=== PATIENT | female | born 1955 | race Caucasian/White ===

== ENCOUNTER 2019-04-13 15:18 | Emergency (ER) | payer MEDICARE, OTHER, SELFPAY ==
--- NOTE | ~2019-04-13 | XR_ITS ---
EXAMINATION: XR thoracic spine 3V DATE: 04/13/2019 15:51 INDICATION: Back pain TECHNIQUE: One AP, lateral and lateral swimmer's views of the thoracic spine were obtained. COMPARISON: Chest CT dated 11/18/2017 FINDINGS: Partially visualized mild lumbar dextrocurvature. Normal alignment of the thoracic spine. Vertebral b owen heights are normal. Mild to moderate disc height loss at a few levels at the lower cervical, mid thoracic and upper lumbar spine. Visualized lungs are clear with no pleural effusion or pneumothorax. Cardiomediastinal silhouette is normal. IMPRESSION: 1. Mild to moderate spondylosis in the lower cervical, mid thoracic and upper lumbar spine with parti ally visualized mild lumbar dextrocurvature. Reviewed, dictated and finalized at location A. PMENT OR MACHINERY CLEANER IMPRESSION: 1. Mild to moderate spondylosis in the lower cervical, mid thoracic and upper l umbar spine with partially visualized mild lumbar dextrocurvature.
--- NOTE | 2019-04-13 15:21 | ED.GENADULT ---
HPI - General Adult General Chief complaint: Back Pain/Injury Stated complaint: MUSCLE SPASMS IN BACK Time Seen by Provider: 04/13/19 15:34 Source: patient and RN notes reviewed Mode of arrival: ambulatory Limitations: no limitations History of Present Illness HPI narrative: This patient awakened at 2 AM today with left mid thoracic back pain which does not radiate. She has not had any fall or direct injury or blow to the area, however she has been pushing her disabled son in his wheelchair and helping him to transfer in and out of bed. He weighs 270 pounds. It hurts with movement. It feels little better she is standing that she is sitting. She went to a massage therapist about 1030 this morning and had a massage and that seemed to help some to relieve what feels like spasm of the muscles in that area. She has never had any fractures of her vertebra are performed for her ribs in the past. Does not hurt when she takes a deep breath. She does not feel short of breath and does not have any chest pain. She has had no cough. She has not had any ear pain, no nasal drainage, no sore throat, no fever, no cough. She has had no nausea, no vomiting, no diarrhea. She has had no hematuria, no dysuria, no pyuria. She has taken Aleve without relief of the symptoms. Related Data Allergies Allergy/AdvReac Type Severity Reaction Status Date / Time Sulfa (Sulfonamide Allergy Unknown Unknown Verified 04/13/19 15:32 Antibiotics) ENVIRONMENTAL ALLERGENS Allergy Mild Cough Uncoded 04/13/19 15:32 Review of Systems Review of Systems: Narrative: CONSTITUTIONAL: Denies fever, chills, or sweats. EYES: Denies visual changes, redness, or discharge. ENT: Denies rhinorrhea, congestion, sore throat, or otalgia. CARDIOVASCULAR: Denies chest pain, palpitations, or edema. RESPIRATORY: Denies cough or dyspnea. GASTROINTESTINAL: Denies abdominal pain, nausea, vomiting, or diarrhea. GENITOURINARY: Denies dysuria or hematuria. SKIN: Denies rash or itching. MUSCULOSKELETAL: Denies back pain, joint pain, or myalgia. NEUROLOGIC: Denies headache, numbness, or weakness. PSYCHIATRIC: Denies anxiety or depression. Noncontributory except as pertains to the past medical history and history of present illness. [facility] Past Medical History Medical History (Updated 04/13/19 @ 15:43 by Moisés Morgan MD) Anxiety Asthma Depression History of vaginal delivery Surgical History Surgical History (Updated 03/28/19 @ 10:55 by Sylwia Vera [facility]) H/O LEEP History of dilation and curettage History of right hip replacement [place] teeth removed Social History Social History Smoking status: Former smoker Second hand tobacco smoke exposure: No Smoking end date: 03/07/16 Alcohol intake: current Comments At time of signature, I have reviewed and agree with nursing past medical, surgical, social, and family history.Please see nursing chart for further information. There is no relevant family history pertinent to the presenting complaint. Exam Narrative: Exam Narrative: GENERAL: Well-appearing, well-nourished, and in no acute distress. HEAD: Normocephalic, atraumatic. EYES: PERRLA and EOMI. EARS: TM's clear bilaterally and the canals are clear. NOSE: Nares clear, no rhinorrhea or epistaxis. THROAT:Mucous membranes moist.Oropharynx normal without erythema or exudates. NECK: Supple. No adenopathy of the neck, supraclavicular, axillary, or inguinal areas. RESPIRATORY: No respiratory distress. Airway patent. Respirations non-labored. Clear to auscultation. There are no wheezes, no rales, no retractions, no use of accessory muscle respirations. Patient is not cyanotic and not dyspneic. The pulse ox on room air is 100% current temperature is 36.7. Patient has palpation tenderness with muscle spasm along the left mid thoracic area posteriorly near the medial border the scapula. The scapula itself is not tender to palpation. There is no muscle spasm or palpatio
[2019-04-13 15:25] VITALS: BP 135/61; PULSE 79; RESP 20; TEMP 36.7; O2SAT 100
== END 2019-04-13 16:04 | disposition home or self-care (01) ==
PROVIDERS: Emergency Provider Family Medicine
DX: S29.012A Strain of muscle and tendon of back wall of thorax, initial encounter (principal); X58.XXXA Exposure to other specified factors, initial encounter; J45.909 Unspecified asthma, uncomplicated; Z96.641 Presence of right artificial hip joint; Z87.891 Personal history of nicotine dependence
CPT/HCPCS: 72072; 99213; G0463

== ENCOUNTER 2019-05-01 10:16 | Outpatient (CLI) | payer MEDICARE, OTHER, SELFPAY ==
--- NOTE | ~2019-05-01 | MM_ITS ---
EXAMINATION: MM screening [facility] w [facility] HISTORY: Screening mammogram TECHNIQUE: Craniocaudal and mediolateral oblique 3-D tomosynthesis images were obtained and synthetic 2-D images were generated. CAD analysis was submitted and interpreted. COMPARISON: Comparison to multiple prior studies sequentially, with oldest reviewed study dated 11/21. BREAST PARENCHYMAL COMPOSITION: The breasts are heterogeneously dense, which may obscure small masses . FINDINGS: There is no evidence of suspicious mass, calcification, or architectural distortion to sugg est malignancy in either breast. There has been no suspicious interval change. IMPRESSION: 1. No mammographic evidence of malignancy. 2. Recommend routine screening mammography in one year. BI-RADS Category 1: Negative Reviewed, dictated and finalized at location A. TRUCK DRIVER
== END 2019-05-01 10:17 | disposition home or self-care (01) ==
LOC: ANHIMG 10:21
PROVIDERS: PCP Family Medicine; Visit Provider Student in an Organized Health Care Education/Training Program
DX: Z12.31 Encounter for screening mammogram for malignant neoplasm of breast (principal)
CPT/HCPCS: 77063; 77067

== ENCOUNTER → 2019-12-17 07:40 | Outpatient (CLI) | payer MEDICARE, SELFPAY ==
--- NOTE | ~2019-12-17 | CT_ITS ---
EXAMINATION: CT lung screening DATE: 12/17/2019 08:26 INDICATION: Personal history of tobacco use, current smoker with 30 pack year history TECHNIQUE: Computed tomography (CT) of the chest was performed without intravenous contrast. The dose -length product (DLP) was 42.82 mGy-cm. Automated exposure control and iterative reconstruction techn Moduslyue were employed. COMPARISON: 11/18/2017 FINDINGS: There is mild emphysema. No suspicious pulmonary nodules are identified. There is no pleura l effusion or pneumothorax. No pathologically enlarged thoracic lymph nodes are identified. The heart size is normal. Cysts of the liver measure up to 2.9 cm in the left hepatic lobe. There is mild thor acic spondylosis. IMPRESSION: 1. Lung-RADS category 1: Negative. Continue annual screening with noncontrast low-dose chest CT in 12 months. Reviewed, dictated and finalized at location A. IMPRESSION: 1. Lung-RADS category 1: Negative. Continue annual screening with noncontrast l ow-dose chest CT in 12 months.
== END ==
PROVIDERS: PCP Family Medicine; Visit Provider Family Medicine
DX: Z12.2 Encounter for screening for malignant neoplasm of respiratory organs (principal); Z87.891 Personal history of nicotine dependence
CPT/HCPCS: G0297

== ENCOUNTER 2020-03-26 06:54 | Outpatient (NON) | payer MEDICARE, SELFPAY ==
[2020-03-26 21:58] LABS: SARS-CoV-2 RNA PCR Negative
== END 2020-03-26 06:55 ==
LOC: ANHCOVIDDT 06:58
PROVIDERS: PCP Family Medicine; Visit Provider Family Medicine
DX: Z20.822 Contact with and (suspected) exposure to COVID-19 (principal); R52 Pain, unspecified
CPT/HCPCS: C9803; U0003; U0005

== ENCOUNTER 2020-06-23 08:28 | Outpatient (CLI) | payer MEDICARE, SELFPAY ==
--- NOTE | ~2020-06-23 | DEXA_ITS ---
Bone Density Report Name: Yaritza Grewal Age: 64 Sex: Female Ethnicity: White Date of : 1955 Indication: postmenopausal; asthma or emphysema; Referring Provider: Shruthi Mccann Study: Bone densitometry was performed. Exam Date: June 23, 2020 Accession number: [id number] Bone Density: Region BMD T-score Z-score Classification AP Spine (L1-L4) 0.920 -1.2 0.7 Osteopenia Femoral Neck (Left) 0.637 -1.9 -0.3 Osteopenia Total Hip (Left) 0.810 -1.1 0.2 Osteopenia World Health Organization criteria for BMD impression classify patients as: Normal (T-score at or above -1.0), Osteopenia (T-score between -1.0 and -2.5), or Osteoporosis (T-score at or below -2.5). 10-year Fracture Risk(1): Major Osteoporotic Fracture 9.9% Hip Fracture 1.5% Reported Risk Factors: [place] (), Neck BMD=0.637, BMI=22.9 (1) FRAX(R) Version 3.08. Fracture probability calculated for an untreated patient. Fracture probability may be lower if the patient has received treatment. Previous Exams: Region Exam Age BMD T-score BMD Change BMD Change Date g/cm2 vs Baseline vs Previous AP Spine(L1-L4) 06/23/2020 64 0.920 -1.2 -0.103(-10.1%) -0.046(-4.8%)* 04/13/2018 62 0.967 -0.7 -0.057(-5.6%)# -0.001(-0.1%) 01/16/2016 60 0.968 -0.7 -0.056(-5.4%)# -0.043(-4.2%)* 11/19/2013 58 1.011 -0.3 -0.013(-1.3%)# 0.000(0.0%)# 10/25/2009 54 1.010 -0.3 -0.013(-1.3%) -0.013(-1.3%) 06/25/2006 50 1.023 -0.2 Total Hip(Left) 06/23/2020 64 0.810 -1.1 -0.124(-13.3%) -0.041(-4.8%)* 04/13/2018 62 0.851 -0.7 -0.083(-8.9%)# 0.014(1.6%) 01/16/2016 60 0.837 -0.9 -0.096(-10.3%) -0.043(-4.9%)* 11/19/2013 58 0.880 -0.5 -0.054(-5.8%)# 0.014(1.6%)# 10/30/2011 56 0.866 -0.6 -0.068(-7.3%)# -0.060(-6.5%)# 10/25/2009 54 0.926 -0.1 -0.008(-0.8%) -0.008(-0.8%) 06/25/2006 50 0.934 -0.1 *Denotes significance at 95% confidence level, LSC for AP Spine = 0.022 g/cm2, LSC for Total Hip = 0.027 g/cm2 Clinical Information Provided by Patient: Has used the following medications: HRT (i.e. estrogen/hormone therapy), Vitamin D, Calcium Has the following medical conditions: Asthma or Emphysema Patient maximum height was 64 Menopause Age: 43 No regular weight bearing exercise Does not regularly consume dairy products Drinks caffeinated beverages Onset of menses at age 10 Number of children 1 Impression: The patient has low bone mass, based on the Left Femoral Neck T-score. The patient has
--- NOTE | ~2020-06-23 | MM_ITS ---
EXAMINATION: MM screening [facility] BI w bethany HISTORY: Screening mammogram TECHNIQUE: Craniocaudal and mediolateral oblique 3-D tomosynthesis images were obtained and synthetic 2-D images were generated. CAD analysis was submitted and interpreted. COMPARISON: 05/01/2019, 04/13/2018, 03/30/2017 BREAST PARENCHYMAL COMPOSITION: The breasts are heterogeneously dense, which may obscure small masses . FINDINGS: There is no evidence of suspicious mass, calcification, or architectural distortion to sugg est malignancy in either breast. There has been no suspicious interval change. IMPRESSION: 1. No mammographic evidence of malignancy. 2. Recommend routine screening mammography in one year. BI-RADS Category 1: Negative Reviewed, dictated and finalized at location A.
== END 2020-06-23 08:29 | disposition home or self-care (01) ==
LOC: ANHIMG 08:33
PROVIDERS: PCP Family Medicine; Visit Provider Student in an Organized Health Care Education/Training Program
DX: Z12.31 Encounter for screening mammogram for malignant neoplasm of breast (principal); Z78.0 Asymptomatic menopausal state; M85.88 Other specified disorders of bone density and structure, other site; M85.852 Other specified disorders of bone density and structure, left thigh
CPT/HCPCS: 77063; 77067; 77080

== ENCOUNTER → 2021-02-03 08:51 | Outpatient (CLI) | payer MEDICARE, SELFPAY ==
[2021-02-03 20:05] LABS: SARS-CoV-2 RNA PCR Negative
== END ==
PROVIDERS: PCP Family Medicine; Visit Provider Family Medicine
DX: R19.7 Diarrhea, unspecified (principal); R11.10 Vomiting, unspecified; Z20.822 Contact with and (suspected) exposure to COVID-19
CPT/HCPCS: C9803; U0003; U0005

== ENCOUNTER → 2021-07-23 08:37 | Outpatient (CLI) | payer MEDICARE, SELFPAY ==
--- NOTE | ~2021-07-23 | CT_ITS ---
EXAMINATION: CT lung screening DATE: 07/23/2021 08:51 INDICATION: Personal history of tobacco dependence TECHNIQUE: Computed tomography (CT) of the chest was performed without intravenous contrast. The dose -length product was 54.22 mGy-cm. COMPARISON: CT dated 12/17/2019 FINDINGS: Heart size normal. No significant pleural or pericardial effusion. No thoracic lymphadenopa thy. The upper abdomen is unremarkable. There are multiple low-density lesions in the liver, most lik laina benign cysts. Mild thoracic spondylosis. There is emphysema. No pneumothorax. No endobronchial le sions. No pulmonary nodules/masses. Mild thoracic spondylosis. IMPRESSION: 1. Lung-RADS category 1: Negative. Continue annual screening with noncontrast low-dose chest CT in 12 months. Reviewed, dictated and finalized at location B. IMPRESSION: 1. Lung-RADS category 1: Negative. Continue annual screening with noncontrast l ow-dose chest CT in 12 months.
== END ==
PROVIDERS: PCP Family Medicine; Visit Provider Family Medicine
DX: Z12.2 Encounter for screening for malignant neoplasm of respiratory organs (principal); Z87.891 Personal history of nicotine dependence
CPT/HCPCS: 71271

== ENCOUNTER → 2021-09-18 02:11 | Outpatient (CLI) | payer MEDICARE, SELFPAY ==
[2021-09-18 17:31] LABS: SARS-CoV-2 RNA PCR Negative
== END ==
PROVIDERS: PCP Family Medicine; Visit Provider Family Medicine
DX: R68.89 Other general symptoms and signs (principal); Z20.822 Contact with and (suspected) exposure to COVID-19
CPT/HCPCS: C9803; U0003; U0005

== ENCOUNTER 2022-03-12 08:00 | Outpatient (CLI) | payer MEDICARE, SELFPAY ==
--- NOTE | ~2022-03-12 | MM_ITS ---
EXAMINATION: MM screening [facility] BI w bethany HISTORY: Screening mammogram TECHNIQUE: Craniocaudal and mediolateral oblique 3-D tomosynthesis images were obtained and synthetic 2-D images were generated. CAD analysis was submitted and interpreted. COMPARISON: 06/23/2020, 05/01/2019, 04/13/2018 BREAST PARENCHYMAL COMPOSITION: The breasts are heterogeneously dense, which may obscure small masses . FINDINGS: No suspicious mass, calcification, or architectural distortion are identified in either [place]mel[place] ast to suggest malignancy. There has been no suspicious interval change. IMPRESSION: 1. No mammographic evidence of malignancy. 2. Recommend routine screening mammography in one year. BI-RADS Category 1: Negative Reviewed, dictated and finalized at location A. OR INFORMATION DEVELOPER
== END 2022-03-12 08:01 | disposition home or self-care (01) ==
LOC: ANHIMG 08:05
PROVIDERS: PCP Family Medicine; Visit Provider Family Medicine
DX: Z12.31 Encounter for screening mammogram for malignant neoplasm of breast (principal)
CPT/HCPCS: 77063; 77067

== ENCOUNTER 2022-04-13 08:38 | Outpatient (CLI) | payer MEDICARE, SELFPAY ==
--- NOTE | ~2022-04-13 | MR_ITS ---
EXAMINATION: MR lumbar spine wo con DATE: 04/13/2022 09:18 INDICATION: Low back pain. Degeneration of intervertebral disc. TECHNIQUE: Magnetic resonance imaging (MRI) of the lumbar spine was performed without intravenous con trast. Sequences included sagittal T2-weighted FSE, sagittal T2-weighted FS FSE, sagittal T1-weighted FSE, and axial T2-weighted FSE. COMPARISON: None FINDINGS: There is 23 degrees dextroscoliosis of lumbar spine. There is 3 mm retrolisthesis of L2 on L3. Vertebral body heights are normal. There is moderately decreased disc height at L1-L2 and severel y decreased disc height from L2-L3 through L5-S1 with endplate remodeling. The distal spinal cord sig nal intensity is normal. The conus medullaris is at L1. The following disc levels are specifically di scussed: L1-L2: The disc is bulging. There is mild right facet joint osteoarthritis. There is mild bilateral n eural foraminal stenosis. There is mild central canal stenosis. L2-L3: The disc is bulging and has an annular fissure. There is mild right and moderate left facet tommie int osteoarthritis. There is mild bilateral neural foraminal stenosis. There is mild central canal st enosis. L3-L4: The disc is bulging and has an annular fissure. There is mild right and moderate left facet tommie int osteoarthritis. There is mild bilateral neural foraminal stenosis. There is mild central canal st enosis. L4-L5: The disc is bulging and has an annular fissure. There is severe bilateral facet joint osteoart hritis. There is mild bilateral neural foraminal stenosis. There is mild central canal stenosis. L5-S1: The disc is bulging and has an annular fissure. There is severe right and mild left facet join t osteoarthritis. There is moderate right and mild left neural foraminal stenosis. There is mild cent ral canal stenosis. IMPRESSION: 1. Severe lumbar spondylosis. 2. Lumbar dextroscoliosis. Reviewed, dictated and finalized at location A. GER ENGLISH
== END 2022-04-13 08:39 ==
PROVIDERS: PCP Family Medicine; Visit Provider Nurse Practitioner
DX: M47.896 Other spondylosis, lumbar region (principal)
CPT/HCPCS: 72148

== ENCOUNTER → 2022-04-27 08:06 | Outpatient (CLI) | payer MEDICARE, SELFPAY ==
--- NOTE | ~2022-04-27 | XR_ITS ---
Thoracic spine: Clinical Indication: Back pain AP and lateral views were performed. No fracture is seen. There is normal alignment of the vertebrae. The intervertebral disc spaces appe ar normal. Paravertebral soft tissues appear normal. Impression: No significant abnormalities noted. Reviewed, dictated and finalized at [facility]. AR WORKER Impression: No significant abnormalities noted.
== END ==
PROVIDERS: PCP Family Medicine; Visit Provider Neurological Surgery
DX: M54.9 Dorsalgia, unspecified (principal)
CPT/HCPCS: 72072

== ENCOUNTER → 2022-05-03 11:16 | Outpatient (CLI) | payer MEDICARE, SELFPAY ==
--- NOTE | ~2022-05-03 | MR_ITS ---
EXAMINATION: MR thoracic spine wo con DATE: 05/03/2022 11:55 INDICATION: Mid back pain. TECHNIQUE: Magnetic resonance imaging (MRI) of the thoracic spine was performed without intravenous c ontrast. COMPARISON: Thoracic spine radiographs 04/27/2022 FINDINGS: There is 9 degrees levocurvature of upper thoracic spine. Vertebral body heights are normal . There is mildly decreased disc height from T4-T5 through T9-T10 and moderately decreased disc heigh t at T10-T11 and T11-T12. There is multilevel facet joint osteoarthritis, severe on the right from T2 -T3 through T4-T5 and severe on the left at T2-T3. On the right, there is mild neural foraminal steno sis at T3-T4, T4-T5, T10-T11, and T11-T12. On the left, there is mild neural foraminal stenosis at T2 -T3. At T7-T8, there is a left central protrusion with mild central canal stenosis. At T9-T10, there is a central extrusion with mild central canal stenosis and ventral indentation of the spinal cord. A t T10-T11 and T11-T12, the discs are bulging with mild central canal stenosis. At T12-L1, there is a central protrusion with mild central canal stenosis. The spinal cord signal intensity is normal. IMPRESSION: 1. Moderate thoracic spondylosis. Reviewed, dictated and finalized at location A. OMER ACCOUNT ADMINISTRATOR
== END ==
PROVIDERS: PCP Family Medicine; Visit Provider Neurological Surgery
DX: M47.894 Other spondylosis, thoracic region (principal)
CPT/HCPCS: 72146

== ENCOUNTER 2022-07-28 12:49 | Outpatient (CLI) | payer MEDICARE, SELFPAY ==
--- NOTE | ~2022-07-28 | DEXA_ITS ---
Bone Density Report Name: KARINE ALBARRAN Age: 66 Sex: Female Ethnicity: White Date of : 1955 Indication: osteopenia; inflammatory bowel disease; asthma or emphysema; postmenopausal Referring Provider: EBONY MORSE Study: Bone densitometry was performed. Exam Date: July 28, 2022 Accession number: [id number] Bone Density: Region BMD T-score Z-score Classification AP Spine(L1-L4) 0.919 -1.2 0.9 Osteopenia Femoral Neck (Left) 0.622 -2.0 -0.3 Osteopenia Total Hip (Left) 0.760 -1.5 -0.1 Osteopenia World Health Organization criteria for BMD impression classify patients as: Normal (T-score at or above -1.0), Osteopenia (T-score between -1.0 and -2.5), or Osteoporosis (T-score at or below -2.5). 10-year Fracture Risk(1): Major Osteoporotic Fracture 11% Hip Fracture 2.1% Reported Risk Factors: [place] (), Neck BMD=0.622, BMI=23.5 (1) FRAX(R) Version 3.08. Fracture probability calculated for an untreated patient. Fracture probability may be lower if the patient has received treatment. Previous Exams: Region Exam Age BMD T-score BMD Change BMD Change Date g/cm2 vs Baseline vs Previous AP Spine (L1-L4) 07/28/2022 66 0.919 -1.2 -0.092 (-9.1%) -0.002 (-0.2%) 06/23/2020 64 0.920 -1.2 -0.090 (-8.9%) -0.046 (-4.8%) 04/13/2018 62 0.967 -0.7 -0.044 (-4.3%) -0.001 (-0.1%) 01/16/2016 60 0.968 -0.7 -0.043 (-4.2%) -0.043 (-4.2%) 11/19/2013 58 1.011 -0.3 Total Hip(Left) 07/28/2022 66 0.760 -1.5 -0.120 (-13.6% -0.050 (-6.2%) 06/23/2020 64 0.810 -1.1 -0.070 (-8.0%) -0.041 (-4.8%) 04/13/2018 62 0.851 -0.7 -0.029 (-3.3%) 0.014 (1.6%) 01/16/2016 60 0.837 -0.9 -0.043 (-4.9%) -0.043 (-4.9%) 11/19/2013 58 0.880 -0.5 *Denotes significance at 95% confidence level, LSC for AP Spine = 0.022 g/cm2, LSC for Total Hip = 0.027 g/cm2 Clinical Information Provided by Patient: Has used the following medications: Vitamin D, Calcium Has the following medical conditions: Asthma or Emphysema, Inflammatory bowel diseases Patient maximum height was 64 Menopause Age: 38 Does not regularly consume dairy products Drinks caffeinated beverages Onset of menses at age 10 Number of children 1 Impression: The patient has low bone mass, based on the Left Femoral Neck T-score. The patient has an estimated ten-year risk of hip fracture of 2.1% and an estimated ten-year risk of major fracture of 11%, based on the WHO FRAX algorithm. The BMD for the Total Hip(Left) decreased, baugh
== END 2022-07-28 12:50 | disposition home or self-care (01) ==
LOC: ANHIMG 12:49
PROVIDERS: PCP Family Medicine; Visit Provider Family Medicine
DX: Z78.0 Asymptomatic menopausal state (principal); M85.88 Other specified disorders of bone density and structure, other site; M85.852 Other specified disorders of bone density and structure, left thigh
CPT/HCPCS: 77080

== ENCOUNTER 2023-03-17 08:30 | Outpatient (CLI) | payer MEDICARE, SELFPAY ==
--- NOTE | ~2023-03-17 | MM_ITS ---
EXAMINATION: MM screening [facility] BI w bethany HISTORY: Screening mammogram TECHNIQUE: Craniocaudal and mediolateral oblique 3-D tomosynthesis images were obtained and synthetic 2-D images were generated. CAD analysis was submitted and interpreted. COMPARISON: 03/12/2022, 06/23/2020, 05/01/2019 BREAST PARENCHYMAL COMPOSITION: The breasts are heterogeneously dense, which may obscure small masses . FINDINGS: No suspicious mass, calcification, or architectural distortion are identified in either carmelina ast to suggest malignancy. There has been no suspicious interval change. IMPRESSION: 1. No mammographic evidence of malignancy. 2. Recommend routine screening mammography in one year. BI-RADS Category 1: Negative Reviewed, dictated and finalized at location A. ITS MODEL
== END 2023-03-17 08:31 | disposition home or self-care (01) ==
PROVIDERS: PCP Family Medicine; Visit Provider Family Medicine
DX: Z12.31 Encounter for screening mammogram for malignant neoplasm of breast (principal)
CPT/HCPCS: 77063; 77067

== ENCOUNTER 2023-04-03 10:16 | Emergency (ER) | payer MEDICARE, SELFPAY ==
--- NOTE | ~2023-04-03 | CT_ITS ---
EXAMINATION: CT abdomen pelvis w con DATE: 04/03/2023 12:04 INDICATION: Diarrhea. Generalized abdominal cramping. TECHNIQUE: Computed tomography (CT) of the abdomen and pelvis was performed with 100 cc 350 intraveno us contrast. The dose-length product was 329.79 mGy-cm. Automated exposure control and iterative beti nstruction technique were employed. COMPARISON: None. FINDINGS: There is thickening of the sigmoid colon with multiple diverticula. No significant surround ing inflammatory change. There are multiple liver cysts. Heart size normal. Dependent atelectasis. No significant pleural or pericardial effusion. The spleen, pancreas, adrenal glands and kidneys are un remarkable. Gallbladder is present. No significant vascular abnormality. No lymphadenopathy. No free air or free fluid. There is a right hip arthroplasty. Moderate lumbar spondylosis. IMPRESSION: 1. Thickening of the sigmoid colon. Cannot exclude underlying mass or colitis. Recommend further eval uation with colonoscopy. 2: Liver cysts. Reviewed, dictated and finalized at location A. L MAID IMPRESSION: 1. Thickening of the sigmoid colon. Cannot exclude underlying mass or colitis. Recommend further evaluation with colonoscopy. 2: Liver cysts.
--- NOTE | ~2023-04-03 | XR_ITS ---
EXAMINATION: XR chest 2V 04/03/2023 12:00 INDICATION: Cough PROCEDURE: 2 view chest COMPARISON: 07/03/2015 FINDINGS: The lungs are clear. The cardiomediastinal silhouette is within normal limits. There are no pleural effusions. There is no pneumothorax suspected. IMPRESSION: 1: NO ACUTE CARDIOPULMONARY DISEASE. Reviewed, dictated and finalized at location A. OR LINUX SYSTEMS ADMINISTRATOR
[2023-04-03 10:23] VITALS: BP 154/88; PULSE 73; RESP 16; TEMP 36.8; O2SAT 100
[2023-04-03] MEDS: SODIUM CHLORIDE 0.9% IV 1,000 ML 999 ML IV CONT ×2 (10:47→12:58)
[2023-04-03 11:02] VITALS: BP 179/69; PULSE 73; RESP 17; TEMP 36.4; O2SAT 98
--- NOTE | 2023-04-03 11:05 | ED.NAVMDI ---
HPI - Nausea/Vomiting/Diarrhea General Chief complaint: Nausea/Vomiting/Diarrhea Stated complaint: n/v/d Time Seen by Provider: 04/03/23 10:35 History of Present Illness HPI Narrative: 67-year-old female reports for evaluation for nausea, vomiting and diarrhea x3 days. Patient had a telehealth appointment with her PCP on 03/21/2023 for sinus congestion for 3 days. She was placed on azithromycin on Augmentin and finished a course of antibiotics around 3-4 days ago. She then began developing multiple episodes of watery diarrhea daily associated nausea and vomiting. She reports associated abdominal cramping and intermittent mild cough. Denies fever, however states she has been having the chills and urinary frequency. Denies dysuria or hematuria, hematochezia melena, chest pain or shortness of breath. Denies recent surgeries or hospitalizations, recent travel. Related Data Home Medications Medication Instructions Recorded Confirmed calcium carbonate 600 mg calcium 600 mg PO DAILY 04/20/19 03/22/23 (1,500 mg) tablet (Calcium) cholecalciferol (vitamin D3) 100 4,000 unit PO DAILY 04/20/19 03/22/23 mcg (4,000 unit) tablet multivitamin 1 tablet PO DAILY 10/01/19 03/22/23 ascorbic acid (vitamin C) 500 mg mg PO 05/09/20 03/22/23 capsule turmeric 100 mg-magno 150 cap PO 12/15/21 03/22/23 mg-olive 50 mg-oreg 150 mg-capryl capsule sour lala extract 1,000 mg mg PO 08/16/22 03/22/23 capsule (Tart Lala Extract) magnesium oxide 400 mg PO DAILY 02/15/23 03/22/23 Allergies Allergy/AdvReac Type Severity Reaction Status Date / Time Sulfa (Sulfonamide Allergy Unknown Unknown Verified 03/22/23 10:34 Antibiotics) ENVIRONMENTAL ALLERGENS Allergy Mild Cough Uncoded 03/22/23 10:34 Review of Systems Review of Systems: CONSTITUTIONAL: Denies fever, chills, or sweats. EYES: Denies visual changes, redness, or discharge. ENT: Denies rhinorrhea, congestion, sore throat, or otalgia. CARDIOVASCULAR: Denies chest pain, palpitations, or edema. RESPIRATORY: see HPI GASTROINTESTINAL: See HPI GENITOURINARY: Denies dysuria or hematuria. SKIN: Denies rash or itching. MUSCULOSKELETAL: Denies back pain, joint pain, or myalgia. NEUROLOGIC: Denies headache, numbness, or weakness. PSYCHIATRIC: Denies anxiety or depression. [facility] Past Medical History Medical History Anxiety Asthma Degenerative disc disease Depression Diverticulosis Hepatitis C antibody test negative (09/22/16) History of vaginal delivery Surgical History Surgical History H/O LEEP History of adenectomy (~1959) History of dilation and curettage History of right hip replacement History of tonsillectomy (~1959) Hx of cataract surgery (~09/05/19) both eyes [place] teeth removed Family History Family History Father Hyperlipidemia Mother Hyperlipidemia Social History Social History Smoking status: Former smoker Second hand tobacco smoke exposure: No Smoking end date: 03/07/16 Alcohol intake: former Substance use: never Substance use type: does not use Lack of Transportation: No Lack of Food: Never True Current Housing: I Have Housing Concerned About Future Housing: No Difficulty Paying Gas/Electric Bills: No Difficulty Paying for Meds: No Currently Unemployed: No Education: Decline to Answer Difficulty w/ Childcare or Family Care: No Exam Narrative: GENERAL: Well-appearing, well-nourished, and in no acute distress. HEAD: Normocephalic, atraumatic. EYES: PERRLA and EOMI. ENT: Nares clear, no rhinorrhea or epistaxis. Mucous membranes dry NECK: Supple. CHEST: Clear to auscultation. No respiratory distress. HEART: Regular rate and rhythm. No murmur heard. Normal peripheral pulses
[2023-04-03 11:24] LABS: Basophils Percent Auto 0.3 % (0.2-1.2); Hematocrit 44.7 % (37.0-47.0); Hemoglobin 14.7 g/dL (12.0-15.0); Immature Granulocyte Absolute 0.05 K/mm3 (0.00-0.031); Immature Granulocyte Percent A 0.4 % (0-0.5); Lymphocytes Absolute Auto 0.44 K/mm3 (0.9-3.2); Lymphocytes Percent Auto 3.5 % (18.3-44.2); Mean Corpuscular HGB Conc 32.9 g/dl (32-36); Mean Corpuscular Volume 91.2 fl (80-100); Mean Platelet Volume 9.4 fl (7.4-10.4); Monocytes Absolute Auto 0.2 K/mm3 (0.1-0.6); Monocytes Percent Auto 1.8 % (2.6-8.5); Neutrophils Absolute Auto 11.7 K/mm3 (1.3-6.7); Platelet Count Result 289 k/mm3 (150-375); Red Cell Distribution Width 13.2 % (11.5-14.5); White Blood Count 12.5 K/mm3 (4.5-10.0)
[2023-04-03 11:28] LABS: Appearance Urine Turbid (Clear); Bacteria Urine None Seen /hpf; Bilirubin Urine Negative (Negative); Blood Urine Negative (Negative); Color Urine Yellow (Yellow); Glucose Urine UA Negative (Negative); Ketones Urine 3+ mg/dL (Negative); Leukocyte Esterase Ur 2+ LEU/UL (Negative); Nitrate Urine Negative (Negative); Non Pathogenic Casts 0-2; Protein Urine 1+ mg/dL (Negative); Specific Grav Ur 1.017 (1.001-1.035); Squamous Epithelial Cell Urine None seen /hpf (Few); Urobilinogen Urine 0.2 mg/dL (<2.0); WBC Urine 21-50 /hpf; pH Urine 7.5 (5.0-9.0)
[2023-04-03 11:29] LABS: Add Urine Microscopic? YES
[2023-04-03 11:45] LABS: Alanine Aminotransferase 25 U/L (6-35); Albumin Level 4.4 g/dL (3.5-5.1); Alkaline Phosphatase 76 U/L (38-126); Anion Gap 10 mmol/L (8-16); Aspartate Amino Transferase 34 U/L (14-36); Bilirubin,Total 0.9 mg/dL (0.2-1.3); Blood Urea Nitrogen 16 mg/dL (7-17); Calcium 9.5 mg/dL (8.4-10.2); Carbon Dioxide 26 mmol/L (22-30); Chloride 102 mmol/L (98-107); Estimated CRCL calculation 52 ml/min; Estimated Glomerular Filt Rate > 60; Glucose 140 mg/dL (65-110); Potassium 3.7 mmol/L (3.4-5.0); Sodium 138 mmol/L (137-145)
[2023-04-03 12:01] LABS: Influenza A QL RT-PCR Negative (Negative); Influenza B QL RT-PCR Negative (Negative); RSV RNA, RT-PCR Negative (Negative); SARS-CoV-2 RNA PCR Negative (Negative)
[2023-04-03] MEDS: ONDANSETRON INJ 4 MG/2 ML VIAL IV PUSH (12:14)
[2023-04-03 12:15] VITALS: BP 176/92; PULSE 78; RESP 22; TEMP 36.6; O2SAT 100
[2023-04-03 12:22] LABS: Magnesium 2.1 mg/dL (1.6-2.3)
[2023-04-03 12:32] VITALS: BP 191/78; PULSE 72; RESP 18; TEMP 36.6; O2SAT 95
[2023-04-03 13:19] VITALS: BP 180/80; PULSE 86; RESP 19; TEMP 36.6; O2SAT 100
[2023-04-03 14:48] LABS: Toxigenic C. Diff POSITIVE (NEGATIVE)
== END 2023-04-03 13:47 | disposition home or self-care (01) ==
PROVIDERS: Emergency Provider Physician Assistant; PCP Family Medicine
DX: A04.72 Enterocolitis due to Clostridium difficile, not specified as recurrent (principal); N12 Tubulo-interstitial nephritis, not specified as acute or chronic; E86.0 Dehydration; K76.89 Other specified diseases of liver; Z20.822 Contact with and (suspected) exposure to COVID-19; J45.909 Unspecified asthma, uncomplicated; Z96.641 Presence of right artificial hip joint; Z87.891 Personal history of nicotine dependence; Z98.42 Cataract extraction status, left eye; Z98.41 Cataract extraction status, right eye
CPT/HCPCS: 36415; 71046; 74177; 80053; 81001; 83735; 85025; 87045; 87086; 87427; 87449; 87493; 87637; 89055; 96361; 96365; 96375; 99284; J0696; J2405; J7030; Q9967

== ENCOUNTER 2023-09-05 09:54 | Outpatient (CLI) | payer MEDICARE, SELFPAY | END 2023-09-05 09:55 | disposition home or self-care (01) | PROVIDERS: PCP Family Medicine; Visit Provider Family Medicine | DX: H90.3 Sensorineural hearing loss, bilateral (principal); H93.12 Tinnitus, left ear | CPT/HCPCS: 92557; 92567 ==

== ENCOUNTER 2023-10-10 08:00 | Outpatient (RCR) | payer MEDICARE, SELFPAY | END 2023-12-11 23:59 | disposition home or self-care (01) | LOC: ANHAUDASC 08:00 | PROVIDERS: PCP Family Medicine; Visit Provider Family Medicine | DX: Z46.1 Encounter for fitting and adjustment of hearing aid (principal) | CPT/HCPCS: 99199; V5261 ==

== ENCOUNTER 2024-01-17 10:26 | Outpatient (CLI) | payer MEDICARE, SELFPAY ==
--- NOTE | ~2024-01-17 | CT_ITS ---
EXAMINATION:CT lung screening DATE: 01/17/2024 10:41 INDICATION: Personal history of nicotine dependence. 20 pack year history. TECHNIQUE: Computed tomography (CT) of the chest was performed without intravenous contrast. Automate d exposure control and iterative reconstruction technique were employed. The dose-length product (DLP ) was 73.05 mGy-cm. COMPARISON: Chest CT 07/23/2021 FINDINGS: There is stable mild scarring at the lung apices. No pleural effusion. The heart size is no rmal. No pericardial effusion. There are cysts in the liver measuring up to 2.9 cm. There is dextrocu rvature of thoracic spine. IMPRESSION: 1. Lung-RADS category 2: Benign appearance or behavior. Continue annual screening with noncontrast lo w-dose chest CT in 12 months. Reviewed, dictated and finalized at location A. MACIST APPRENTICE IMPRESSION: 1. Lung-RADS category 2: Benign appearance or behavior. Continue annual screeni ng with noncontrast low-dose chest CT in 12 months.
== END 2024-01-17 10:27 | disposition home or self-care (01) ==
PROVIDERS: PCP Family Medicine; Visit Provider Family Medicine
DX: Z12.2 Encounter for screening for malignant neoplasm of respiratory organs (principal); Z87.891 Personal history of nicotine dependence
CPT/HCPCS: 71271

== ENCOUNTER 2024-04-20 13:52 | Outpatient (CLI) | payer MEDICARE, SELFPAY ==
--- NOTE | ~2024-04-20 | MM_ITS ---
EXAMINATION: MM screening [facility] BI w bethany HISTORY: Screening TECHNIQUE: Craniocaudal and mediolateral oblique 3-D tomosynthesis images were obtained and synthetic 2-D images were generated. CAD analysis was submitted and interpreted. COMPARISON: Comparison to multiple prior studies sequentially, with oldest reviewed study dated 03/30. BREAST PARENCHYMAL COMPOSITION: Dense: The breasts are heterogeneously dense, which may obscure small masses FINDINGS: There is no evidence of suspicious mass, calcification, or architectural distortion to sugg est malignancy in either breast. There has been no suspicious interval change. IMPRESSION: 1. No mammographic evidence of malignancy. 2. Recommend routine screening mammography in one year. BI-RADS Category 1: Negative Reviewed, dictated and finalized at location B. ICAL NURSE REVIEWER
--- OUTSIDE RECORDS SUMMARY | 2024-04-20 13:55 | XMS_ITS | Referral Summary ---
Author Organization [facility] C Address [address] [place] [address] Care Team Providers Care Trash Collector Name Role Phone No, Physician Primary Care Provider [phone] Allergies Active Allergy Reactions Criticality Noted Date Comments Sulfa (Sulfonamide Antibiotics) Unknown 04/08 Medications rosuvastatin (CRESTOR) 5 mg tablet Take 5 mg by mouth every other day Active ascorbic acid (VITAMIN C) 500 mg tablet,chewable Take 500 mg by mouth daily Active multivitamin capsule Take 1 capsule by mouth daily Active calcium-vitamin D3-vitamin K 500 mg-1,000 unit-40 mcg tablet,chewable Take by mouth Active polycarbophil (FIBERCON) 625 mg tablet Take 625 mg by mouth daily Active turmeric root extract 500 mg capsule Take by mouth Active vit A,C and O-pmjanv-klmuhi ls (OCUVITE with LUTEIN) 300 mcg-200 mg-27 mg-2 mg tabletIndicatio ns:Vitamin Deficiency Prevention 1 tablet Active Active Problems Problem Noted Date Diagnosed Date Mid back pain 04/26/2022 Assessment & Plan (05/18/2022 3:05 PM CDT): Ms. Grewal has diffuse back pain primarily centered below the bra line. Thoracic MRI does not show significant spinal cord compression. There are disc bulges at multiple levels without severe nerve root impingement. She has known multilevel spondylosis in her lumbar spine. She has no signs of radiculopathy or myelopathy. Her current symptoms have responded well to therapy and home exercise program. We discussed that in general spine surgery does not have good results treating axial back pain. I plan to follow her over time and we will see her back in 1 year with no new films at that time. I would be happy to see her in the interim if any problems arise. Assessment & Plan (04/26/2022 3:07 PM MIDDLE SCHOOL RESOURCE TEACHER): Ms. Grewal has scoliosis of her lumbar spine. While she has pathology at the lower levels of her lumbar spine most of her pain is directed to her mid back below the bra line. Would recommend obtaining a thoracic spine x-ray and ultimately an MRI of the thoracic spine to further evaluate. Patient prefers to go to [facility] for these. We will call the patient after the studies have been completed as she wishes to see Dr. Reynoso for a [id number] conversation. Discussed some conservative treatment options to include pain management in the form of injections, physical therapy, use of anti-inflammatories and muscle relaxants as needed. Patient prefers the least invasive route as much as possible. Social History Tobacco Use Types Packs/Day Years Used Date Smoking Tobacco: Former Cigarettes Tobacco Cessation:Counseling Given: Not Answered AUDIT-C Answer Date Recorded Q1: How often do you have a drink containing alc ohol? 2-4 times a month 04/26/2022 Q2: How many drinks containi ng alcohol do you have on a typical day when you are drinking? 1 or 2 04/26/2022 Q3: How often do you have si x or more drinks on one occasion? Never 04/26/2022 PHQ-2 Answer Date Recorded PHQ-2 Total Score (If total score is 3 or more points, staff should administer the PHQ-9) 0 04/26/2022 Personal Safety Answer Date Recorded Getting School Help Needed Not on file 03/13 Comments Unknown Sex and Gender Information Value Date Recorded Sex Assigned at Not on file Legal Sex Female 8:57 AM MIDDLE SCHOOL RESOURCE TEACHER Gender Identity Female 05/13/2022 7:12 AM MIDDLE SCHOOL RESOURCE TEACHER Sexual Orientation Not on file Last Filed Vital Signs Vital Sign Reading Time Taken Comments Blood Pressure 174/81 05/18/2022 2:15 PM CDT Pulse 76 05/18/2022 2:15 PM CDT Temperature - - Respiratory Rate 14 05/18/2022 2:15 PM CDT Oxygen Saturation - - Inhaled Oxygen Concentration - - Weight 62.1 kg (137 lb) 05/18/2022 2:15 PM CDT Height 164 cm (5' 4.57 ) 05/18/2022 2:15 PM CDT Body Mass Index 23.1 05/18/2022 2:15 PM CDT Plan of Treatment Not on file Insurance T MEDICARE AET MEDICARE Care Teams Trash Collector Relationship Specialty Start Date End Date No, Physician PCP - General 04/20/22
--- OUTSIDE RECORDS SUMMARY | 2024-04-20 13:55 | XMS_ITS | Clinical Summary ---
Author Organization [facility] C Address [address] [place] [address] Care Team Providers Care Comsec Manager Name Role Phone No, Physician Primary Care Provider [phone] Allergies Active Allergy Reactions Criticality Noted Date [...] Take by mouth Active vit A,C and Z-bddyud-icnocy ls (OCUVITE with LUTEIN) 300 mcg-200 mg-27 [...] arise. Assessment & Plan (04/26/2022 3:07 PM DISABILITY ATTORNEY): Ms. Grewal has scoliosis of her lumbar spine. While she has pathology at the lower levels of her lumbar spine most of her pain is directed to her mid back below the bra line. Would recommend obtaining a thoracic spine x-ray and ultimately an MRI of the thoracic spine to further evaluate. Patient prefers to go to [facility] for these. We will call the patient after the studies have been completed as she wishes to see Dr. Reynoso for a [id number] conversation. Discussed some conservative treatment options to include pain management in the form of injections, physical therapy, use of anti-inflammatories and muscle relaxants as needed. Patient prefers the least invasive route as much as possible. Surgical History Surgery Date Site/Laterality Comments TONSILLECTOMY HIP SURGERY 03/07/2011 - 03/06/2012 Right replacement Medical History Medical History Date Comments Depression Hypercholesteremia Arthritis Asthma Family History Medical History Relation Name Comments Diabetes Father Hypertension Father Diabetes Mother Hypertension Mother Relation Name Status Comments Father Mother Social History Tobacco Use Types Packs/Day Years [...] on file Legal Sex Female 8:57 AM DISABILITY ATTORNEY Gender Identity Female 05/13/2022 7:12 AM DISABILITY ATTORNEY Sexual Orientation Not on file Obstetrics History Last Filed Vital Signs Vital Sign Reading [...] 05/18/2022 2:15 PM CDT Plan of Treatment Health Maintenance Due Date Last Done Comments Breast Cancer Screening-Mammogram 1955 Colon Cancer Screening-Colonoscopy 1955 Fall Risk Assessment 1955 Hepatitis C Screening 1955 Osteoporosis Screening-Bone Density Scan 1955 Hepatitis B Screening 10/20/1971 Well Visit 65+ 2018 Zoster Vaccine (2 of 2) 03/12/2020 01/16/2020 Depression Screening 04/26/2023 04/26/2022, 04/26/19 23 Covid-19 Vaccine (6 - 2023-2 5 season) 2023 11/15/2021, 06/05/2021, 12/26/2020, Additional history exists Influenza Vaccine (#1) 2023 , 12/29/2018, 11/08/2017 DTaP/Tdap/Td Vaccine (2 - Td or Tdap) 07/28/2030 07/28/2020 Pneumococcal vaccine 65+ Completed 12/03/2020, 09/05 Insurance [employer] MEDICARE Care Teams Comsec Manager Relationship Specialty Start Date End Date No, Physician PCP - General 04/20/22
--- OUTSIDE RECORDS SUMMARY | 2024-04-20 13:55 | XMS_ITS | Continuity of Care Document ---
Author Organization [facility] Address [address] [place] [address] Phone Care Team Providers Care Computer Security Manager Name Role Phone Garry Clayton Unavailable Unavailable Procedures Procedure Date Eye Exam Established Pt Ophthalmoscopy, Subsequent Eye Exam Established Pt Ophthalmoscopy, Subsequent Eye Exam Established Pt Ophthalmoscopy, Subsequent Office Consultation Treatment Of Retina Ophthalmoscopy Ophthalmoscopy Advance Directives Directive Yes / No Effective Date File Name No Information Encounters Encounter Description Practice Location Reason(s) For Visit Diagnoses Date Provider Providers Copied on Encounter [facility], [address] [place] [address] [address], [place], [place], [id number], [place] tel:[phone] [facility] No Information [address] [place], [place], [facility], . tel:[phone] [facility], [id number] [place] [address] [address], [place], [place], [id number], [place] tel:[phone] [facility] No Information [address] [place], [address], [place]. tel:[phone] [facility], [address], [place], [place], [id number], [place] tel:[phone] [facility] No Information [address] [place], [address], [place]. tel:[phone] Office Consultation [facility], [address], [place], [place], [id number], [place] tel:[phone] [facility] No Information [address] [place], [address], [place]. tel:[phone] Referring Provider: Salvador Nunez, [address] [place], [address]. tel:[phone] Family History Family Member Type Diagnosis Age [...]
== END 2024-04-20 13:53 | disposition home or self-care (01) ==
LOC: ANHIMG 13:53
PROVIDERS: PCP Family Medicine; Visit Provider Family Medicine
DX: Z12.31 Encounter for screening mammogram for malignant neoplasm of breast (principal)
CPT/HCPCS: 77063; 77067

== ENCOUNTER 2024-07-16 11:45 | Outpatient (CLI) | payer MEDICARE, SELFPAY ==
--- OUTSIDE RECORDS SUMMARY | 2024-07-16 11:49 | XMS_ITS | Clinical Summary ---
Author Organization [facility] C Address [address] [place] [address] Care Team Providers Care Client Evaluator Name Role Phone No, Physician Primary Care Provider [phone] Allergies Active Allergy Reactions Criticality Noted Date [...] Take by mouth Active vit A,C and C-gyvqvy-zgupoq ls (OCUVITE with LUTEIN) 300 mcg-200 mg-27 [...] arise. Assessment & Plan (04/26/2022 3:07 PM CIGARETTE MAKING MACHINE OPERATOR): Ms. Grewal has scoliosis of her lumbar spine. While she has pathology at the lower levels of her lumbar spine most of her pain is directed to her mid back below the bra line. Would recommend obtaining a thoracic spine x-ray and ultimately an MRI of the thoracic spine to further evaluate. Patient prefers to go to [facility] for these. We will call the patient after the studies have been completed as she wishes to see Dr. Reynoso for a qbmw-ee-bokk conversation. Discussed some conservative treatment options to [...] on file Legal Sex Female 8:57 AM CIGARETTE MAKING MACHINE OPERATOR Gender Identity Female 05/13/2022 7:12 AM CIGARETTE MAKING MACHINE OPERATOR Sexual Orientation Not on file Obstetrics History [...] Screening 04/26/2023 04/26/2022, 04/26/19 23 Covid-19 Vaccine ( - 2023-2 5 season) 2023 11/15/2021, 06/05/2021, 12/26/2020, Additional history exists Influenza Vaccine (Season Ended) 2024 12/08/2020, 12/29/2018, 11/08/2017 DTaP/Tdap/Td Vaccine (2 - Td or Tdap) 07/28/2030 07/28/2020 Pneumococcal vaccine 65+ Completed 12/03/2020, 09/05 Insurance AETNA MEDICARE Care Teams Client Evaluator Relationship Specialty Start Date End Date No, Physician PCP - General 04/20/22
--- OUTSIDE RECORDS SUMMARY | 2024-07-16 11:49 | XMS_ITS | Continuity of Care Document ---
Author Organization [facility] Address [address] [place] [address] Phone Care Team Providers Care Imaging Center Manager Name Role Phone Garry Clayton Unavailable Unavailable Procedures Procedure Date Eye Exam Established Pt Ophthalmoscopy, Subsequent Eye Exam Established Pt Ophthalmoscopy, Subsequent Eye Exam Established Pt Ophthalmoscopy, Subsequent Office Consultation Treatment Of Retina Ophthalmoscopy Ophthalmoscopy Advance Directives Directive Yes / No Effective Date File Name No Information Encounters Encounter Description Practice Location Reason(s) For Visit Diagnoses Date Provider Providers Copied on Encounter Located within [facility], [address] [place] [address] [address], [place], [place], [id number], [place] tel:[phone] [facility] No Information [address] [place], [place], [facility], . tel:[phone] Located within [facility], [id number] [place] [address] [address], [place], [place], [id number], [place] tel:[phone] [facility] No Information [address] [place], [address], [place]. tel:[phone] Located within [facility], [address], [place], [place], [id number], [place] tel:[phone] [facility] No Information [address] [place], [address], [place]. tel:[phone] Office Consultation [facility], [address], [place], [place], [id number], [place] tel:[phone] [facility] No Information [address] [place], [address], [place]. tel:[phone] Referring Provider: Salvador Nunez, [address] [place], [address]. tel:[phone] Family History Family Member Type Diagnosis Age At Onset No Information Payers Payer name Insurance type Covered republican ID Authoriza tion(s) No Information Social History [...]
--- OUTSIDE RECORDS SUMMARY | 2024-07-16 11:49 | XMS_ITS | Referral Summary ---
Author Organization [facility] C Address [address] [place] [address] Care Team Providers Care Mineralogy Teacher Name Role Phone No, Physician Primary Care Provider [phone] Allergies Active Allergy Reactions Criticality Noted Date [...] Take by mouth Active vit A,C and N-laayen-mqdvbq ls (OCUVITE with LUTEIN) 300 mcg-200 mg-27 [...] arise. Assessment & Plan (04/26/2022 3:07 PM ASSISTED LIVING CARE MANAGER): Ms. Grewal has scoliosis of her lumbar spine. While she has pathology at the lower levels of her lumbar spine most of her pain is directed to her mid back below the bra line. Would recommend obtaining a thoracic spine x-ray and ultimately an MRI of the thoracic spine to further evaluate. Patient prefers to go to [facility] for these. We will call the patient after the studies have been completed as she wishes to see Dr. Reynoso for a vfmr-fz-ashi conversation. Discussed some conservative treatment options to [...] on file Legal Sex Female 8:57 AM ASSISTED LIVING CARE MANAGER Gender Identity Female 05/13/2022 7:12 AM ASSISTED LIVING CARE MANAGER Sexual Orientation Not on file Last Filed [...] Insurance T MEDICARE AET MEDICARE Care Teams Mineralogy Teacher Relationship Specialty Start Date End Date No, Physician PCP - General 04/20/22
[2024-07-16 20:51] LABS: Add Urine Microscopic? YES; Appearance Urine Clear (Clear); Bacteria Urine None Seen /hpf; Bilirubin Urine Negative (Negative); Blood Urine Negative (Negative); Color Urine Yellow (Yellow); Glucose Urine UA Negative (Negative); Ketones Urine Negative (Negative); Leukocyte Esterase Ur 1+ LEU/UL (Negative); Nitrate Urine Negative (Negative); Non Pathogenic Casts 0-2; Protein Urine Negative (Negative); RBC Urine 0-2 /hpf (0-2); Specific Grav Ur 1.021 (1.001-1.035); Squamous Epithelial Cell Urine None Seen /hpf (Few); Urobilinogen Urine 0.2 mg/dL (<2.0); WBC Urine 0-5 /hpf (0-3); pH Urine 6.5 (5.0-9.0)
[2024-07-16 21:06] LABS: Need Manual Microscopic Reviewed
== END 2024-07-16 11:46 | disposition home or self-care (01) ==
PROVIDERS: PCP Family Medicine; Visit Provider Nurse Practitioner
DX: R30.0 Dysuria (principal); E78.00 Pure hypercholesterolemia, unspecified; E55.9 Vitamin D deficiency, unspecified; N89.8 Other specified noninflammatory disorders of vagina
CPT/HCPCS: 81001; 87086; 87181

== ENCOUNTER 2024-07-25 08:03 | Outpatient (CLI) | payer MEDICARE, SELFPAY ==
[2024-07-25 13:19] LABS: Add Urine Microscopic? YES; Appearance Urine Clear (Clear); Bacteria Urine None Seen /hpf; Bilirubin Urine Negative (Negative); Blood Urine Negative (Negative); Color Urine Yellow (Yellow); Glucose Urine UA Negative (Negative); Hyaline Casts Urine Present /lpf; Ketones Urine Negative (Negative); Leukocyte Esterase Ur 1+ LEU/UL (Negative); Need Manual Microscopic Reviewed; Nitrate Urine Negative (Negative); Non Pathogenic Casts 0-2; Protein Urine Negative (Negative); RBC Urine 0-2 /hpf (0-2); Specific Grav Ur 1.013 (1.001-1.035); Squamous Epithelial Cell Urine None Seen /hpf (Few); Urobilinogen Urine 0.2 mg/dL (<2.0); WBC Urine 0-5 /hpf (0-3)
== END 2024-07-25 08:04 | disposition home or self-care (01) ==
LOC: ANHGOSHLAB 08:04
PROVIDERS: PCP Family Medicine; Visit Provider Nurse Practitioner
DX: R30.0 Dysuria (principal)
CPT/HCPCS: 81001; 87086

== ENCOUNTER 2024-09-18 09:21 | Emergency (ER) | payer MEDICARE, SELFPAY ==
--- NOTE | ~2024-09-18 | XR_ITS ---
EXAMINATION: XR ribs BI 3V w CXR 2V DATE: 09/18/2024 11:41 INDICATION: Chest pain and shortness of breath TECHNIQUE: PA and lateral views of the chest and 3 views of the left ribs and 3 views of the right ri bs were obtained. COMPARISON: Chest CT dated 01/17/2024 FINDINGS: No rib fractures identified. No pneumothorax. No focal infiltrates, pleural effusion or pulmonary mane ma. Cardiomediastinal silhouette is normal. Mild lumbar dextrorotoscoliosis with severe spondylosis. Mild S-shaped curvature of the thoracic spine with mild to moderate spondylosis. IMPRESSION: 1. No rib fracture or acute cardiopulmonary disease. Reviewed, dictated and finalized at location A.
[2024-09-18 09:27] VITALS: BP 143/71; PULSE 83; RESP 18; TEMP 36.6; O2SAT 100
--- NOTE | 2024-09-18 09:39 | ECG_ITS ---
Test Date: 2024-09-18 09:43:47 Measurements Intervals [place] Rate: 76 P: 57 AK: 170 QRS: 42 QRSD: 101 T: 50 QT: 353 QTc: 397 Interpretive Statements SINUS RHYTHM NORMAL ELECTROCARDIOGRAM No previous ECG available for comparison Electronically Signed On 09-18-2024 10:19:27 CDT by Moisés Roche M.D.
--- NOTE | 2024-09-18 09:42 | ED_ITS ---
HPI - SOB/Dyspnea General Chief Complaint: Shortness of Breath/Dyspnea Stated Complaint: Trouble Breathing Time Seen by Provider: 09/18/24 09:47 Mode of arrival: ambulatory Limitations: no limitations History of Present Illness HPI Narrative: 68 year old female presents with concern for anterior chest/rib pain. Reports in the last few weeks she had back spasms. Reports she has history of back pain and sees a chiropractor, gets regular massages. Reports she did her normal remedies for her back pain/spasm is and resolved. Reports she then started having similar spasm feeling in her right shoulder and right anterior chest. Reports that spasm feeling moved to the left chest. Reports it is a pinpoint discomfort that is tender to touch. She denies any injury or trauma, denies unusual activity. She reports she is having a feeling of difficulty catching her breath. She has a history of asthma, she has been using her inhaler. She denies any upper respiratory symptoms, fever, aches, chills, sweats. She denies any rash, bruising, swelling. MD elicited complaint: shortness of breath (rib pain) Related Data Home Medications ?Medication ?Instructions ?Recorded ?Confirmed ?Last Taken ?Type calcium carbonate (Calcium 600) 600 mg PO DAILY 04/20/19 08/16/24 Unknown History multivitamin 1 tablet PO DAILY 10/01/19 08/16/24 Unknown History Saccharomyces boulardii 250 mg 250 mg PO DAILY 08/02/23 08/16/24 Unknown History capsule (Daily Probiotic (S. boulardii)) cyclosporine 0.05 % eye drops in a drp EACH EYE 08/09/23 08/16/24 Unknown History dropperette bimatoprost 0.01 % eye drops drp EACH EYE 08/16/24 08/16/24 Unknown History (Lumigan) olprima epa/dha .Route 08/16/24 08/16/24 Unknown History psyllium husk 0.4 gram capsule 0.4 g PO DAILY 08/16/24 08/16/24 Unknown History (Daily Fiber) vitamins A,C,K-imfi-gsneoq 4,296 1 cap PO BID 08/16/24 08/16/24 Unknown History mcg-226 mg-90 mg capsule (PreserVision AREDS) Allergies Allergy/AdvReac Type Severity Reaction Status Date / Time Sulfa (Sulfonamide Allergy Unknown Unknown Verified 09/18/24 09:55 Antibiotics) amoxicillin (From Augmentin) AdvReac Severe Diarrhea Verified 09/18/24 09:55 clavulanic acid (From AdvReac Severe Diarrhea Verified 09/18/24 09:55 Augmentin) ENVIRONMENTAL ALLERGENS Allergy Mild Cough Uncoded 09/18/24 09:55 Review of Systems Review of Systems: CONSTITUTIONAL: Denies malaise, chills, sweats, or fever. ENT: Denies congestion, sinus pain, otalgia or sore throat. CARDIOVASCULAR: Denies palpitations, or edema. RESPIRATORY: Denies cough. Reports shortness of breath. SKIN: Denies bruising, redness, swelling, rash or itching. MUSCULOSKELETAL: Denies current back pain. Reports anterior chest wall pain All systems reviewed & are unremarkable except as noted in HPI and below PMFSH Past Medical History Medical History Vaginitis Hepatitis C antibody test negative (09/22/16) Diverticulosis Degenerative disc disease Depression Anxiety Asthma History of vaginal delivery Surgical History Surgical History Hx of cataract surgery (~09/05/19) both eyes History of tonsillectomy (~1960) History of adenectomy (~1960) [place] teeth removed H/O LEEP History of right hip replacement History of dilation and curettage Family History Family History Father Hyperlipidemia Mother Hyperlipidemia Social History Social History Social History: Caffeine- coffee Smoking status: Former smoker Second hand tobacco smoke exposure: No Smoking end date: 03/07/16 Alcohol intake: current Alcohol use details: rarely Substance use: never Substance use type: does not use Do You Feel Safe in your Home?: Yes Lack of Transportation: No Lack of Food: Never True Current Housing: I Have Housing Concerned About Future Housing: No Difficulty Paying Gas/Electric Bills: No Difficulty Paying for Meds: No Currently Unemployed: No Education: Decline to Answer Difficulty w/ Childcare or Family Care: No Occupation/Education: retired Agree to blood products: Yes Comments At time of signature, agree with nursing past medical, surgical, social and family history. There is no relevant family history pertinent to the presenting complaint Exam Narrative: GENERAL: Well-appearing, well-nourished, and in no acute distress. HEAD: Normocephalic, atraumatic. EYES: PERRLA, sclera clear, and EOMI. No nystagmus. ENT: Nares clear. Mucous membranes moist. NECK: Supple. CHEST: No respiratory distress. Clear to auscultation. No bony deformities, no asymmetry. Speaks in full sentences. Left anterior chest tenderness HEART: Regular rate and rhythm. No murmur heard. Normal peripheral pulses. EXTREMITIES: Normal range of motion. No edema. Normal strength and sensation. SKIN: Warm, dry, no visible rash. NEURO: Alert and oriented x3. PSYCH: Normal mood and affect Course Course Emergency Course: Patient is aware of diagnosis, understands and agrees to treatment plan. Anticipatory guidance given. Patient agrees to follow-up as directed and is aware of reasons to seek care at the emergency department. Portions of this record may have been created with voice recognition software Level of Care: Express Care Visit Vital Signs Vital signs: Reviewed. MDM - SOB/Dyspnea MDM Narrative Medical decision making narrative: I evaluated this patient in the express care. History is obtained from patient who is an independent historian and physical exam was performed.? Available medical records were reviewed. ? Exam findings and relevant testing show no acute concerns or changes; patient is non-toxic appearing and is in no distress. EDACS score indicates low risk for major cardiac event ? Differential diagnosis and treatment plan were discussed with the patient. Patient agrees with discussion and after shared medical decision making agrees with plan of care. All questions were answered to the patient's satisfaction. Patient is appropriate for outpatient treatment and follow-up. Imaging Data My impression: Images reviewed, interpreted by radiologist, agree, see report. Radiologist's impression: EXAMINATION: XR ribs BI 3V w CXR 2V DATE: 09/18/2024 11:41 INDICATION: Chest pain and shortness of breath TECHNIQUE: PA and lateral views of the chest and 3 views of the left ribs and 3 views of the right ribs were obtained. COMPARISON: Chest CT dated 01/17/2024 FINDINGS: No rib fractures identified. No pneumothorax. No focal infiltrates, pleural effusion or pulmonary edema. Cardiomediastinal silhouette is normal. Mild lumbar dextrorotoscoliosis with severe spondylosis. Mild S-shaped curvature of the thoracic spine with mild to moderate spondylosis. IMPRESSION: 1. No rib fracture or acute cardiopulmonary disease. ECG Data EKG #1: ECG completion date: 09/18/24 ECG completion time: 09:43 Prior ECG tracings: not available for review Interpretation: Rate 76, IA interval 170, QRS duration 101, QT 353 EKG Interpretation: normal rate and sinus rhythm Critical Care Time Critical Care Time Critical Care Time: No Discharge Plan Discharge Clinical Impression: Acute chest wall pain Patient Disposition: Home Condition: Stable Instructions: Chest Wall Pain (ED) Additional Instructions: Your EKG is normal. Your chest and rib xray's are normal. Your pain is likely muscle pain. Avoid activities that cause pain until the pain subsides. Ice to the area 20-30 minutes 4-6 times a day Tylenol for lesser pain Ibuprofen regularly for the next 2-3 days for the inflammation Try Zyrtec daily for shortness of breath that may be related to your asthma. Need to use your albuterol inhaler as needed. Follow up with your primary care provider if the condition is not improving within 1 week. Patient Language: Trinidadian Prescriptions: No Action multivitamin Tablet 1 tablet PO DAILY Lumigan 0.01 % drops EACH EYE psyllium husk [Daily Fiber] 0.4 gram capsule 0.4 g PO DAILY olprima epa/dha .Route Rx Instructions: take 1 daily PreserVision AREDS 4,296 mcg-226 mg-90 mg capsule 1 cap PO BID calcium carbonate [Calcium 600] 600 mg calcium (1,500 mg) tablet 600 mg PO DAILY cyclosporine 0.05 % dropperette EACH EYE Saccharomyces boulardii [Daily Probiotic (S. boulardii)] 250 mg capsule 250 mg PO DAILY Patient Comments: Recommended by chiropractor naproxen 500 mg tablet 500 mg PO BID PRN (Reason: pain) Qty: 180 1RF fluticasone propionate 50 mcg/actuation spray,suspension 1 spray intranasal BID PRN (Reason: allergy symptoms) Qty: 16 3RF Rx Instructions: administer into each nostril rosuvastatin 5 mg tablet See Rx Instructions .ROUTE .COMPLEX Qty: 48 1RF Dose Instruction: TAKE 1 TABLET BY MOUTH DAILY Rx Instructions: ! tablet 4x a week albuterol sulfate [Ventolin HFA] 90 mcg/actuation HFA aerosol inhaler 2 inh inhalation Q4H PRN (Reason: shortness of breath or wheezing) Qty: 8.5 0RF Follow-up/Referrals: Kenna Garcia DO [Primary Care Provider] - Time of Disposition: 11:49
== END 2024-09-18 11:54 | disposition home or self-care (01) ==
PROVIDERS: Emergency Provider Nurse Practitioner; PCP Family Medicine
DX: R07.89 Other chest pain (principal); Z87.891 Personal history of nicotine dependence; J45.909 Unspecified asthma, uncomplicated
CPT/HCPCS: 71046; 71110; 93005; 99213; G0463

== ENCOUNTER 2024-10-08 07:54 | Outpatient (CLI) | payer MEDICARE, SELFPAY ==
--- OUTSIDE RECORDS SUMMARY | 2024-10-08 07:58 | XMS_ITS | Referral Summary ---
Author Organization [facility] C Address [address] [place] [address] Care Team Providers Care Research Worker Kitchen Name Role Phone No, Physician Primary Care Provider Allergies Active Allergy Reactions Criticality Noted Date [...] Take by mouth Active vit A,C and S-xzdlec-jnwzkw ls (OCUVITE with LUTEIN) 300 mcg-200 mg-27 [...] arise. Assessment & Plan (04/26/2022 3:07 PM VETERINARY ASSISTANT TECHNICIAN): Ms. Grewal has scoliosis of her lumbar spine. While she has pathology at the lower levels of her lumbar spine most of her pain is directed to her mid back below the bra line. Would recommend obtaining a thoracic spine x-ray and ultimately an MRI of the thoracic spine to further evaluate. Patient prefers to go to [facility] for these. We will call the patient after the studies have been completed as she wishes to see Dr. Reynoso for a encm-qb-[id number] conversation. Discussed some conservative treatment options to [...] on file Legal Sex Female 8:57 AM VETERINARY ASSISTANT TECHNICIAN Gender Identity Female 05/13/2022 7:12 AM VETERINARY ASSISTANT TECHNICIAN Sexual Orientation Not on file Last Filed Vital Signs Vital Sign Reading Time Taken Comments Blood Pressure 174/81 05/18/2022 2:15 PM CDT Pulse 76 05/18/2022 2:15 PM CDT Temperature - - Respiratory Rate 14 05/18/2022 2:15 PM CDT Oxygen Saturation - - Inhaled Oxygen Concentration - - Weight 62.1 kg (137 lb) 05/18/2022 2:15 PM CDT Height 164 cm (5' 4.57) 05/18/2022 2:15 PM CDT Body Mass Index 23.1 05/18/2022 2:15 PM CDT Plan of Treatment Not on file Insurance T MEDICARE AET MEDICARE Care Teams Research Worker Kitchen Relationship Specialty Start Date End Date No, Physician PCP - General 04/20/22
--- OUTSIDE RECORDS SUMMARY | 2024-10-08 07:58 | XMS_ITS | Clinical Summary ---
Author Organization [facility] Address [address] [place] [address] Care Team Providers Care Plastic Cutter Name Role Phone No, Physician Primary Care Provider [phone] Allergies Active Allergy Reactions Criticality Noted Date [...] Take by mouth Active vit A,C and T-dwrrju-evvmyf ls (OCUVITE with LUTEIN) 300 mcg-200 mg-27 [...] arise. Assessment & Plan (04/26/2022 3:07 PM DISH WASHER): Ms. Grewal has scoliosis of her lumbar spine. While she has pathology at the lower levels of her lumbar spine most of her pain is directed to her mid back below the bra line. Would recommend obtaining a thoracic spine x-ray and ultimately an MRI of the thoracic spine to further evaluate. Patient prefers to go to [facility] for these. We will call the patient after the studies have been completed as she wishes to see Dr. Reynoso for a uhyo-km-cnes conversation. Discussed some conservative treatment options to [...] on file Legal Sex Female 8:57 AM DISH WASHER Gender Identity Female 05/13/2022 7:12 AM DISH WASHER Sexual Orientation Not on file Obstetrics History [...] 12/26/2020, Additional history exists Influenza Vaccine (#1) 2024 , 12/29/2018, 11/08/2017 DTaP/Tdap/Td Vaccine (2 - Td or Tdap) 07/28/2030 07/28/2020 Pneumococcal vaccine 65+ Completed 12/03/2020, 09/05 Insurance AETNA MEDICARE Care Teams Plastic Cutter Relationship Specialty Start Date End Date No, Physician PCP - General 04/20/22
== END 2024-10-08 07:55 | disposition home or self-care (01) ==
LOC: ANHAUDASC 07:54
PROVIDERS: PCP Family Medicine; Visit Provider Family Medicine
DX: Z01.10 Encounter for examination of ears and hearing without abnormal findings (principal); H90.3 Sensorineural hearing loss, bilateral; H61.23 Impacted cerumen, bilateral
CPT/HCPCS: 92557; 92567

== ENCOUNTER 2024-11-19 12:41 | Outpatient (CLI) | payer MEDICARE, SELFPAY ==
--- OUTSIDE RECORDS SUMMARY | 2007-03-23 09:29 | XMS_ITS | Continuity of Care Document ---
Author Organization [facility] [place] [address] [place] [address] Phone Care Team Providers Care Hat Block Bench Hand Name Role Phone Garry Clayton Unavailable Unavailable Procedures Procedure Date Eye Exam Established Pt Ophthalmoscopy, Subsequent Eye Exam Established Pt Ophthalmoscopy, Subsequent Eye Exam Established Pt Ophthalmoscopy, Subsequent Office Consultation Treatment Of Retina Ophthalmoscopy Ophthalmoscopy Advance Directives Directive Yes / No Effective Date File Name No Information Encounters Encounter Description Practice Location Reason(s) For Visit Diagnoses Date Provider Providers Copied on Encounter [facility], [address] [place] [address] [address], [place], [place], [address], [place] tel:[phone] [facility] No Information [address] Forrest Castañeda. [address] [place], [place], [facility], . tel:[phone] [facility], [address] [place] [address] [address], [place], [place], [address], [place] tel:[phone] [facility] No Information [address] 7 Forrest Castañeda. [address] [place], [address], [place]. tel:[phone] [facility], [address], [place], [place], [address], [place] tel:[phone] [facility] No Information 7 Forrest Castañeda. [address] [place], [address], [place]. tel:[phone] Office Consultation [facility], [address], [place], [place], [address], [place] tel:[phone] [facility] No Information 7 Forrest Castañeda. [address] [place], [address], [place]. tel:[phone] Referring Provider: Salvador Nunez, [address] [place], [address]. tel:[phone] Family History Family Member Type Diagnosis Age At Onset No Information Payers Payer name Insurance type Covered democrat ID Authoriza tion(s) No Information Social History [...]
--- NOTE | ~2024-11-19 | DEXA_ITS ---
Bone Density Report Name: KARINE ALBARRAN Age: 69 Sex: Female Ethnicity: White Date of : 1955 Indication: osteopenia; prior fracture; asthma or emphysema; Referring Provider: EBONY MORSE Study: Bone densitometry was performed. Exam Date: November 19, 2024 Accession number: [id number] Bone Density: Region BMD T-score Z-score Classification AP Spine(L1-L4) 0.808 -2.2 0.0 Osteopenia Femoral Neck (Left) 0.596 -2.3 -0.4 Osteopenia Total Hip (Left) 0.707 -1.9 -0.4 Osteopenia World Health Organization criteria for BMD impression classify patients as: Normal (T-score at or above -1.0), Osteopenia (T-score between -1.0 and -2.5), or Osteoporosis (T-score at or below -2.5). 10-year Fracture Risk: FRAX not reported because: Prior hip or vertebral fracture Previous Exams: Region Exam Age BMD T-score BMD Change BMD Change Date g/cm2 vs Baseline vs Previous AP Spine (L1-L4) 11/19/2024 69 0.808 -2.2 -0.203 (-20.0% -0.111 (-12.0% 07/28/2022 66 0.919 -1.2 -0.092 (-9.1%) -0.002 (-0.2%) 06/23/2020 64 0.920 -1.2 -0.090 (-8.9%) -0.046 (-4.8%) 04/13/2018 62 0.967 -0.7 -0.044 (-4.3%) -0.001 (-0.1%) 01/16/2016 60 0.968 -0.7 -0.043 (-4.2%) -0.043 (-4.2%) 11/19/2013 58 1.011 -0.3 Total Hip(Left) 11/19/2024 69 0.707 -1.9 -0.173 (-19.6% -0.053 (-6.9%) 07/28/2022 66 0.760 -1.5 -0.120 (-13.6% -0.050 (-6.2%) 06/23/2020 64 0.810 -1.1 -0.070 (-8.0%) -0.041 (-4.8%) 04/13/2018 62 0.851 -0.7 -0.029 (-3.3%) 0.014 (1.6%) 01/16/2016 60 0.837 -0.9 -0.043 (-4.9%) -0.043 (-4.9%) 11/19/2013 58 0.880 -0.5 *Denotes significance at 95% confidence level, LSC for AP Spine = 0.022 g/cm2, LSC for Total Hip = 0.027 g/cm2 Clinical Information Provided by Patient: Have had a previous hip or vertebral fracture Has had a low trauma fracture Has used the following medications: Vitamin D, Calcium Has the following medical conditions: Asthma or Emphysema Patient maximum height was 64 Menopause Age: 38 Drinks caffeinated beverages Onset of menses at age 10 Number of children 1 Impression: The patient has low bone mass, based on the Left Femoral Neck T-score. The patient has risk factors, including: previous fracture. The BMD for the AP Spine (L1-L4) decreased, changing by -12.0% since the last DXA exam. The BMD for the Total Hip(Left) decreased, changing by -6.9% since the last DXA exam. Discussion: INCREASED RISK OF FRACTURE DUE TO HISTORY OF FRACTURE. The patient's previous fracture puts the patient at high risk of a future fracture. In untreated patients, the risk of osteoporotic fracture increases approximately two-fold for each 1.0 SD decrease in T-score. Low bone density is not the only risk factor for fracture; also consider factors such as patient's age, frailty or poor health, risk of falling, risk of injury, previous osteoporotic fracture, family history of osteoporosis, cigarette smoking, low body weight, etc. Not everyone with a low trauma fracture has osteoporosis; osteomalacia and other metabolic bone disorders should also be considered. Patients who have osteoporosis should be evaluated for specific diseases and conditions (secondary causes) that may cause or contribute to bone loss and fracture risk. National Osteoporosis Foundation (NOF) recommends pharmacologic intervention for patients with a prior hip or vertebral fracture regardless of BMD T-score. The patient should follow a healthful lifestyle (good nutrition with adequate calcium and vitamin D, and appropriate weight-bearing exercise). Follow-Up: Consider a repeat BMD and Vertebral Fracture Assessment (VFA) exam in 2 years or sooner if medically necessary, to reassess this patient's status. Reported by: ANTHONY on 11/19/2024 1:26:00 PM. Reviewed, dictated and finalized at location A.
== END 2024-11-19 12:42 | disposition home or self-care (01) ==
LOC: ANHFOHIMG 12:43
PROVIDERS: PCP Family Medicine; Visit Provider Family Medicine
DX: M85.88 Other specified disorders of bone density and structure, other site (principal); M85.852 Other specified disorders of bone density and structure, left thigh
CPT/HCPCS: 77080

== ENCOUNTER 2024-12-17 15:21 | Outpatient (CLI) | payer MEDICARE, SELFPAY ==
--- OUTSIDE RECORDS SUMMARY | 2007-03-23 09:29 | XMS_ITS | Continuity of Care Document ---
Author Organization [facility] [place] [address] [place] [address] Phone Care Team Providers Care Chemical Handler Name Role Phone Garry Clayton Unavailable Unavailable Procedures Procedure Date Eye Exam Established Pt Ophthalmoscopy, Subsequent Eye Exam Established Pt Ophthalmoscopy, Subsequent Eye Exam Established Pt Ophthalmoscopy, Subsequent Office Consultation Treatment Of Retina Ophthalmoscopy Ophthalmoscopy Advance Directives Directive Yes / No Effective Date File Name No Information Encounters Encounter Description Practice Location Reason(s) For Visit Diagnoses Date Provider Providers Copied on Encounter [facility], [address] [place] [address] [address], [place], [place], [address], [place] tel:[phone] [facility] No Information [address] Forrest Castañeda. [address] [place], [place], [facility], . tel:[phone] [facility], [address] [place] [address] [address], [place], [place], [address], [place] tel:[phone] [facility] No Information [address] Forrest Castañeda. [address] [place], [address], [place]. tel:[phone] [facility], [address], [place], [place], [address], [place] tel:[phone] [facility] No Information 7 Forrest Castañeda. [address] [place], [address], [place]. tel:[phone] Office Consultation [facility], [address], [place], [place], [address], [place] tel:[phone] [facility] No Information 7 Forrest Castañeda. [address] [place], [address], [place]. tel:[phone] Referring Provider: Salvador Nunez, [address] [place], [address]. tel:[phone] Family History Family Member Type Diagnosis Age At Onset No Information Payers Payer name Insurance type Covered libertarian ID Authoriza tion(s) No Information Social History [...]
--- OUTSIDE RECORDS SUMMARY | 2024-12-17 16:02 | XMS_ITS | Clinical Summary ---
Author Organization [facility] C Address [address] [place] [address] Care Team Providers Care Mechanical Tech Name Role Phone No, Physician Primary Care Provider [phone] Allergies Active Allergy Reactions Criticality Noted Date [...] Take by mouth Active vit A,C and Z-pruswa-xbqbfu ls (OCUVITE with LUTEIN) 300 mcg-200 mg-27 [...] arise. Assessment & Plan (04/26/2022 3:07 PM PEST CONTROLLER ASSISTANT): Ms. Grewal has scoliosis of her lumbar spine. While she has pathology at the lower levels of her lumbar spine most of her pain is directed to her mid back below the bra line. Would recommend obtaining a thoracic spine x-ray and ultimately an MRI of the thoracic spine to further evaluate. Patient prefers to go to [facility] for these. We will call the patient after the studies have been completed as she wishes to see Dr. Reynoso for a jyho-fa-fymh conversation. Discussed some conservative treatment options to [...] on file Legal Sex Female 8:57 AM PEST CONTROLLER ASSISTANT Gender Identity Female 05/13/2022 7:12 AM PEST CONTROLLER ASSISTANT Sexual Orientation Not on file Obstetrics History [...] 04/26/2022, 04/26/19 23 Covid-19 Vaccine (6 - 2024-2 6 season) 2024 11/15/2021, 06/05/2021, 12/26/2020, Additional history exists Influenza Vaccine (#1) 2024 , 12/29/2018, 11/08/2017 DTaP/Tdap/Td Vaccine (2 - Td or Tdap) 07/28/2030 07/28/2020 Pneumococcal vaccine 65+ Completed 12/03/2020, 09/05 Insurance AETNA MEDICARE Care Teams Mechanical Tech Relationship Specialty Start Date End Date No, Physician PCP - General 04/20/22
[2024-12-18 07:09] LABS: Measles Antibodies, IgG >300.0 AU/mL (Immune >16.4)
== END 2024-12-17 15:22 | disposition home or self-care (01) ==
LOC: ANHGOSHLAB 15:21
PROVIDERS: PCP Family Medicine; Visit Provider Family Medicine
DX: Z11.59 Encounter for screening for other viral diseases (principal)
CPT/HCPCS: 86765

== ENCOUNTER 2024-12-17 15:29 | Outpatient (CLI) | payer MEDICARE, SELFPAY ==
--- NOTE | ~2024-12-17 | XR_ITS ---
EXAMINATION: XR hip RT min 2V, 12/17/2024 15:34 CDT HISTORY: Pain in right hip x 8 months, hip replacement 10-11 years ag COMPARISON: No comparisons available. Findings: No acute fracture or malalignment. Arthroplasty intact Soft tissues unremarkable. Impression: No acute fracture or malalignment. Reviewed, dictated and finalized at location P. Impression: No acute fracture or malalignment.
== END 2024-12-17 15:30 | disposition home or self-care (01) ==
LOC: GOSHIMG 15:30
PROVIDERS: PCP Family Medicine; Visit Provider Family Medicine
DX: M25.551 Pain in right hip (principal); Z96.641 Presence of right artificial hip joint
CPT/HCPCS: 73502

== ENCOUNTER 2025-01-13 11:27 | Emergency (ER) | payer MEDICARE, SELFPAY ==
--- NOTE | 2025-01-13 11:33 | ED.GENADULT ---
HPI - General Adult General Chief complaint: Extremity Problem,Nontraumatic Stated complaint: R Calf Pain Time Seen by Provider: 01/13/25 11:33 Source: patient Mode of arrival: ambulatory Limitations: no limitations History of Present Illness HPI narrative: 69-year-old female patient presents to the [facility] with complaints of right-sided calf pain for the last 2 weeks. Patient denies any specific injury that she is aware but states she does have chronic back pain due to some slipped discs so she thought this might be related to her back pain. patient states that the pain has increased when she walks. She has noticed some swelling to the leg. Denies taking anything for the pain. Related Data Home Medications ?Medication ?Instructions ?Recorded ?Confirmed ?Last Taken ?Type calcium carbonate (Calcium 600) 600 mg PO DAILY 04/20/19 12/17/24 Unknown History multivitamin 1 tablet PO DAILY 10/01/19 12/17/24 Unknown History Saccharomyces boulardii 250 mg 250 mg PO DAILY 08/02/23 12/17/24 Unknown History capsule (Daily Probiotic (S. boulardii)) olprima epa/dha .Route 08/16/24 12/17/24 Unknown History psyllium husk 0.4 gram capsule 0.4 g PO DAILY 08/16/24 12/17/24 Unknown History (Daily Fiber) vitamins A,C,E-kkdy-epweoe 4,296 1 cap PO BID 08/16/24 12/17/24 Unknown History mcg-226 mg-90 mg capsule (PreserVision AREDS) Allergies Allergy/AdvReac Type Severity Reaction Status Date / Time Sulfa (Sulfonamide Allergy Unknown Unknown Verified 01/13/25 11:58 Antibiotics) amoxicillin (From Augmentin) AdvReac Severe Diarrhea Verified 01/13/25 11:58 clavulanic acid (From AdvReac Severe Diarrhea Verified 01/13/25 11:58 Augmentin) ENVIRONMENTAL ALLERGENS Allergy Mild Cough Uncoded 12/17/24 14:41 Review of Systems Review of Systems: CONSTITUTIONAL: Denies fever, chills, or sweats. EYES: Denies visual changes, redness, or discharge. ENT: Denies rhinorrhea, congestion, sore throat, or otalgia. CARDIOVASCULAR: Denies chest pain, palpitations, or edema. RESPIRATORY: Denies cough or dyspnea. GASTROINTESTINAL: Denies abdominal pain, nausea, vomiting, or diarrhea. GENITOURINARY: Denies dysuria or hematuria. SKIN: Denies rash or itching. MUSCULOSKELETAL: Denies back pain, joint pain, or myalgia. Positive right calf pain x2 NEUROLOGIC: Denies headache, numbness, or weakness. PSYCHIATRIC: Denies anxiety or depression. [facility] Past Medical History Medical History Vaginitis Hepatitis C antibody test negative (09/22/16) Diverticulosis Degenerative disc disease Depression Anxiety Asthma History of vaginal delivery Surgical History Surgical History Hx of cataract surgery (~09/05/19) both eyes History of tonsillectomy (~1959) History of adenectomy (~1959) [place] teeth removed H/O LEEP History of right hip replacement History of dilation and curettage Family History Family History Father Hyperlipidemia Mother Hyperlipidemia Social History Social History Social History: Caffeine- coffee Second hand tobacco smoke exposure: No Smoking end date: 03/07/16 Alcohol intake: current Alcohol use details: rarely Substance use: never Substance use type: does not use Do You Feel Safe in your Home?: Yes Lack of Transportation: No Lack of Food: Never True Current Housing: I Have Housing Concerned About Future Housing: No Difficulty Paying Gas/Electric Bills: No Difficulty Paying for Meds: No Currently Unemployed: No Education: Decline to Answer Difficulty w/ Childcare or Family Care: No Occupation/Education: retired Agree to blood products: Yes Comments At the time of my signature I agree with nursing past medical history, surgical, social, and family history. There is no relevant family history pertinent to the presenting complaint. Exam Narrative: GENERAL: Well-appearing, well-nourished, and in no acute distress. HEAD: Normocephalic, atraumatic. EYES: PERRLA and EOMI. ENT: Nares clear, no rhinorrhea or epistaxis. Mucous membranes moist. NECK: Supple. No lymphadenopathy CHEST: Clear to auscultation. No respiratory distress. HEART: Regular rate and rhythm. No murmur heard. Normal peripheral pulses. ABDOMEN: Soft, nontender, nondistended, normal active bowel sounds. EXTREMITIES: Patient is able to bear weight and ambulate without pain. No surface trauma, STS, or obvious effusion. No overlying erythema. mild warmth noted behind the right knee The R/L knee is with/without obvious asymmetry or deformity when compared to the R/L knee. there is some swelling noted to the right calf as compared to the left calf. Patient is able to do deep knee bend with symmetry, fully extend knee, internal and external rotation. No tendernss to palpation of the patella, no effusion or ballottement. No tenderness over the infrapatellar tendon. No tenderness over the medial or lateral joint lone ot the medial or lateral tibial plateaus. no tenderness over the proximal fibular head. no tenderness, fullness, or mass of the popliteal fossa. No quadriceps tenderness. No laxity of the ACL, PCL, MCL, or LCL. No collateral ligament laxity to valgus or vargus stress. Negative diego/drawer sign. Negative Binta. Negative Apley compression and/or distraction. Distal motor and neurovascular status intact. SKIN: Warm, dry, no rash. NEURO: No focal deficits. Alert and oriented x3. Course Course Level of Care: Express Care Visit Vital Signs Vital signs: Vital Signs Temperature 35.9 C L 01/13/25 11:34 Pulse Rate 90 01/13/25 11:34 Respiratory Rate 16 01/13/25 11:34 Blood Pressure 156/76 H 01/13/25 11:34 Pulse Oximetry 100 01/13/25 11:34 Temperature 35.9 C L 01/13/25 11:34 Pulse Rate 90 01/13/25 11:34 Respiratory Rate 16 01/13/25 11:34 Blood Pressure 156/76 H 01/13/25 11:34 Pulse Oximetry 100 01/13/25 11:34 Vital signs reviewed. The patient has been informed that they may have pre-hypertension or Hypertension based on a BP reading in the department. I recommend that the patient call the primary care provider listed on their discharge instructions or a physician of their choice this week to arrange follow up for further evaluation of possible pre-hypertension or Hypertension Medical Decision Making MDM Narrative Medical decision making narrative: Plan of care for patient is to send her to the ER to rule out a DVT. Discussed with patient that they do have ultrasound at the hospital today and they can better evaluate her there to ensure that this is not something significant if this is negative most likely it is the muscle strain and which way you ordered be able to treat symptomatically. Differential Diagnosis Differential Diagnosis: Differential diagnosis: Sprain, strain, muscle spasm, DVT. Vital Signs Vital Signs: Vital Signs Temperature 35.9 C L 01/13/25 11:34 Pulse Rate 90 01/13/25 11:34 Respiratory Rate 16 01/13/25 11:34 Blood Pressure 156/76 H 01/13/25 11:34 Pulse Oximetry 100 01/13/25 11:34 Temperature 35.9 C L 01/13/25 11:34 Pulse Rate 90 01/13/25 11:34 Respiratory Rate 16 01/13/25 11:34 Blood Pressure 156/76 H 01/13/25 11:34 Pulse Oximetry 100 01/13/25 11:34 Vital signs reviewed. The patient has been informed that they may have pre-hypertension or Hypertension based on a BP reading in the department. I recommend that the patient call the primary care provider listed on their discharge instructions or a physician of their choice this week to arrange follow up for further evaluation of possible pre-hypertension or Hypertension Discharge Plan Discharge Clinical Impression: Right calf pain Patient Disposition: Acute Care Hospital Condition: Stable Instructions: Antibiotic Form Patient Language: [place] Prescriptions: No Action multivitamin Tablet 1 tablet PO DAILY psyllium husk [Daily Fiber] 0.4 gram capsule 0.4 g PO DAILY olprima epa/dha .Route Rx Instructions: take 1 daily PreserVision AREDS 4,296 mcg-226 mg-90 mg capsule 1 cap PO BID calcium carbonate [Calcium 600] 600 mg calcium (1,500 mg) tablet 600 mg PO DAILY Saccharomyces boulardii [Daily Probiotic (S. boulardii)] 250 mg capsule 250 mg PO DAILY Patient Comments: Recommended by chiropractor naproxen 500 mg tablet 500 mg PO BID PRN (Reason: pain) Qty: 180 1RF albuterol sulfate [Ventolin HFA] 90 mcg/actuation HFA aerosol inhaler 2 inh inhalation Q4H PRN (Reason: shortness of breath or wheezing) Qty: 8.5 0RF fluticasone propionate 50 mcg/actuation spray,suspension 1 spray intranasal BID PRN (Reason: allergy symptoms) Qty: 16 3RF Rx Instructions: administer into each nostril rosuvastatin 5 mg tablet See Rx Instructions .ROUTE .COMPLEX Qty: 48 1RF Dose Instruction: TAKE 1 TABLET BY MOUTH DAILY Rx Instructions: ! tablet 4x a week Follow-up/Referrals: Kenna Garcia DO [Primary Care Provider, [facility]] Time of Disposition: 12:04
[2025-01-13 11:34] VITALS: BP 156/76; PULSE 90; RESP 16; TEMP 35.9; O2SAT 100
== END 2025-01-13 12:04 | disposition short-term general hospital (02) ==
PROVIDERS: Emergency Provider Nurse Practitioner Family; PCP Family Medicine
DX: M79.661 Pain in right lower leg (principal); J45.909 Unspecified asthma, uncomplicated; Z87.891 Personal history of nicotine dependence
CPT/HCPCS: 99212; G0463

== ENCOUNTER 2025-01-13 12:25 | Emergency (ER) | payer MEDICARE, SELFPAY ==
--- OUTSIDE RECORDS SUMMARY | 2007-03-23 08:29 | XMS_ITS | Continuity of Care Document ---
Author Organization [facility] [place] [address] [place] [address] Phone Care Team Providers Care Hobbies And Crafts Sales Representative Name Role Phone Garry Clayton Unavailable Unavailable Procedures Procedure Date Eye Exam Established Pt Ophthalmoscopy, Subsequent Eye Exam Established Pt Ophthalmoscopy, Subsequent Eye Exam Established Pt Ophthalmoscopy, Subsequent Office Consultation Treatment Of Retina Ophthalmoscopy Ophthalmoscopy Advance Directives Directive Yes / No Effective Date File Name No Information Encounters Encounter Description Practice Location Reason(s) For Visit Diagnoses Date Provider Providers Copied on Encounter [facility], [address] [place] [address] [address], [place], [place], [id number], [place] tel:[phone] SEC [facility] No Information 7 8 Forrest Castañeda. [address] [place], [place], [facility], . tel:[phone] [facility], [address] [place] [address] [address], [place], [place], [address], [place] tel:[phone] [facility] No Information 6[address] 7 Forrest Castañeda. [address] [place], [address], [place]. tel:[phone] [facility], [address], [place], [place], [address], [place] tel:[phone] [facility] No Information 7 Forrest Castañeda. [address] [place], [address], [place]. tel:[phone] Office Consultation [facility], [address], [place], [place], [address], [place] tel:[phone] [facility] No Information 7 Forrest Castañeda. [address] [place], [address], [place]. tel:[phone] Referring Provider: Salvador Nunez, [address] [place], [address]. tel:[phone] Family History Family Member Type Diagnosis Age At Onset No Information Payers Payer name Insurance type Covered constitution party ID Authoriza tion(s) No Information Social [...]
--- NOTE | ~2025-01-13 | US_ITS ---
RIGHT LOWER EXTREMITY VENOUS DUPLEX Clinical History: Leg pain rule out deep vein thrombosis COMPARISON: None TECHNIQUE: Grayscale, color, duplex/spectral Doppler sonography right leg FINDINGS: Right leg common femoral, femoral, popliteal, and calf veins compressible and color Doppler patent. Normal augmentation with distal compression. No internal echoes. 3 cm fluid collection popliteal fossa. IMPRESSION: 1. No right leg DVT. 2. Small Castanon's cysts. Reviewed, dictated and finalized at location R. ER IN [facility]BB[facility] LOOM
--- OUTSIDE RECORDS SUMMARY | 2025-01-13 12:27 | XMS_ITS | Clinical Summary ---
Author Organization [facility] C Address [address] [address] Care Team Providers Care Assembler Final Name Role Phone No, Physician Primary Care Provider [phone] Allergies Active Allergy Reactions Criticality Noted Date [...] Take by mouth Active vit A,C and M-gzybxp-dnpenb ls (OCUVITE with LUTEIN) 300 mcg-200 mg-27 [...] arise. Assessment & Plan (04/26/2022 3:07 PM INSTRUCTOR PROGRAMMABLE CONTROLLERS): Ms. Grewal has scoliosis of her lumbar spine. While she has pathology at the lower levels of her lumbar spine most of her pain is directed to her mid back below the bra line. Would recommend obtaining a thoracic spine x-ray and ultimately an MRI of the thoracic spine to further evaluate. Patient prefers to go to [facility] for these. We will call the patient after the studies have been completed as she wishes to see Dr. Reynoso for a [id number] conversation. Discussed some conservative treatment options to [...] on file Legal Sex Female 8:57 AM INSTRUCTOR PROGRAMMABLE CONTROLLERS Gender Identity Female 05/13/2022 7:12 AM INSTRUCTOR PROGRAMMABLE CONTROLLERS Sexual Orientation Not on file Last Filed [...] 65+ Completed 12/03/2020, 09/05 Insurance [employer] MEDICARE AET MEDICARE Care Teams Assembler Final Relationship Specialty Start Date End Date No, Physician PCP - General 04/20/22
[2025-01-13 12:29] VITALS: BP 146/75; PULSE 83; RESP 16; TEMP 36.4; O2SAT 100
--- NOTE | 2025-01-13 12:40 | ED.LOWEXIN ---
HPI - Extremity Injury (Lower) General Chief Complaint: Extremity Injury, Lower Stated Complaint: r/o dvt right leg Time Seen by Provider: 01/13/25 12:36 Source: patient Mode of arrival: ambulatory Limitations: no limitations History of Present Illness HPI Narrative: 69 years old white female drove herself to the emergency room complaining of pain at the right calf muscles started 2 weeks ago. Patient denies any trauma, fever, chills, nausea vomiting, chest pain shortness of breath. Patient takes no anti-platelet or anticoagulant medications Related Data Home Medications ?Medication ?Instructions ?Recorded ?Confirmed ?Last Taken ?Type calcium carbonate (Calcium 600) 600 mg PO DAILY 04/20/19 12/17/24 Unknown History multivitamin 1 tablet PO DAILY 10/01/19 12/17/24 Unknown History Saccharomyces boulardii 250 mg 250 mg PO DAILY 08/02/23 12/17/24 Unknown History capsule (Daily Probiotic (S. boulardii)) olprima epa/dha .Route 08/16/24 12/17/24 Unknown History psyllium husk 0.4 gram capsule 0.4 g PO DAILY 08/16/24 12/17/24 Unknown History (Daily Fiber) vitamins A,C,M-ahrl-wbxuen 4,296 1 cap PO BID 08/16/24 12/17/24 Unknown History mcg-226 mg-90 mg capsule (PreserVision AREDS) Allergies Allergy/AdvReac Type Severity Reaction Status Date / Time Sulfa (Sulfonamide Allergy Unknown Unknown Verified 01/13/25 12:34 Antibiotics) amoxicillin (From Augmentin) AdvReac Severe Diarrhea Verified 01/13/25 12:34 clavulanic acid (From AdvReac Severe Diarrhea Verified 01/13/25 12:34 Augmentin) ENVIRONMENTAL ALLERGENS Allergy Mild Cough Uncoded 12/17/24 14:41 Review of Systems Review of Systems: All systems reviewed & are unremarkable except as noted in HPI and below PMFSH Past Medical History Medical History Vaginitis Hepatitis C antibody test negative (09/22/16) Diverticulosis Degenerative disc disease Depression Anxiety Asthma History of vaginal delivery Surgical History Surgical History Hx of cataract surgery (~09/05/19) both eyes History of tonsillectomy (~1960) History of adenectomy (~1959) [place] teeth removed H/O LEEP History of right hip replacement History of dilation and curettage Family History Family History Father Hyperlipidemia Mother Hyperlipidemia Social History Social History Social History: Caffeine- coffee Second hand tobacco smoke exposure: No Smoking end date: 03/07/16 Alcohol intake: current Alcohol use details: rarely Substance use: never Substance use type: does not use Do You Feel Safe in your Home?: Yes Lack of Transportation: No Lack of Food: Never True Current Housing: I Have Housing Concerned About Future Housing: No Difficulty Paying Gas/Electric Bills: No Difficulty Paying for Meds: No Currently Unemployed: No Education: Decline to Answer Difficulty w/ Childcare or Family Care: No Occupation/Education: retired Agree to blood products: Yes Exam Narrative: General appearance: Well-developed, well-nourished Skin: Normal color Head: Normocephalic, nontraumatic l Neck: Supple, nontender Chest and respiratory: Airway patent, no respiratory distress, no accessory muscle use Heart: Regular rate/rhythm Abdomen: Soft, nontender, no organomegaly, quiet bowel sounds Vascular: Normal peripheral pulses, normal capillary refill. Musculoskeletal: Right lower leg examination showing diffuse tenderness at the right calf muscles, soft to touch, no bruises, no discharge, no swelling, no deformity, no rash or erythema Neurologic: Alert and oriented ?3, SALES AND SERVICE OFFICER is normal as tested, no gross motor deficit Course Vital Signs Vital signs: Vital Signs Temperature 36.4 C L 01/13/25 12:29 Pulse Rate 83 01/13/25 12:29 Respiratory Rate 16 01/13/25 12:29 Blood Pressure 146/75 H 01/13/25 12:29 Pulse Oximetry 100 01/13/25 12:29 Oxygen Delivery Room Air 01/13/25 12:29 Temperature 36.4 C L 01/13/25 12:29 Pulse Rate 84 01/13/25 14:57 Respiratory Rate 16 01/13/25 14:57 Blood Pressure 145/71 H 01/13/25 14:57 Pulse Oximetry 100 01/13/25 14:57 Oxygen Delivery Room Air 01/13/25 12:29 MDM - Extremity Injury (Lower) MDM Narrative Medical decision making narrative: Patient came with nontraumatic right leg pain 2 weeks ago Vital signs stable Physical examination showing diffuse tenderness right leg posteriorly, no deformity, no rash, no swelling, no wound no erythema. Differential diagnosis include muscle pain, deep vein thrombosis new light venous Doppler right leg showed no deep vein thrombosis. Diagnosis leg pain Discharged on Tylenol, ibuprofen as needed, follow up with family physician for possible physical therapy. The pt was discharged to home.the pt,s condition upon discharge was fair,education was provided to the pt in reference to the final impression,discharge study results,treatment,prognosis and need for follow up . Differential Diagnosis Differential diagnosis: Likely other (As above) Imaging Data Radiologist's impression: Impressions Venous Doppler Study 01/13/25 13:59 IMPRESSION: 1. No right leg DVT. 2. Small Castanon's cysts. Critical Care Time Critical Care Time Critical Care Time: No Discharge Plan Discharge Clinical Impression: Acute leg pain, Castanon cyst Patient Disposition: Home Condition: Stable Instructions: Castanon Cyst (ED), Leg Pain (ED) Additional Instructions: Return if symptoms are worsening , call your family physician for appointment, take Tylenol, ibuprofen as as needed for aches and pain, continue home medications. Patient Language: Panamanian Prescriptions: No Action multivitamin Tablet 1 tablet PO DAILY psyllium husk [Daily Fiber] 0.4 gram capsule 0.4 g PO DAILY olprima epa/dha .Route Rx Instructions: take 1 daily PreserVision AREDS 4,296 mcg-226 mg-90 mg capsule 1 cap PO BID calcium carbonate [Calcium 600] 600 mg calcium (1,500 mg) tablet 600 mg PO DAILY Saccharomyces boulardii [Daily Probiotic (S. boulardii)] 250 mg capsule 250 mg PO DAILY Patient Comments: Recommended by chiropractor naproxen 500 mg tablet 500 mg PO BID PRN (Reason: pain) Qty: 180 1RF albuterol sulfate [Ventolin HFA] 90 mcg/actuation HFA aerosol inhaler 2 inh inhalation Q4H PRN (Reason: shortness of breath or wheezing) Qty: 8.5 0RF fluticasone propionate 50 mcg/actuation spray,suspension 1 spray intranasal BID PRN (Reason: allergy symptoms) Qty: 16 3RF Rx Instructions: administer into each nostril rosuvastatin 5 mg tablet See Rx Instructions .ROUTE .COMPLEX Qty: 48 1RF Dose Instruction: TAKE 1 TABLET BY MOUTH DAILY Rx Instructions: ! tablet 4x a week Follow-up/Referrals: Kenna Garcia DO [Primary Care Provider, Family Practice]
--- OUTSIDE RECORDS SUMMARY | 2025-01-13 13:15 | XMS_ITS | Clinical Summary ---
Author Organization [facility] C Address [address] [place] [address] Care Team Providers Care Marketing Operations Coordinator Name Role Phone No, Physician Primary Care [...] Take by mouth Active vit A,C and Z-wgtutq-fumxht ls (OCUVITE with LUTEIN) 300 mcg-200 mg-27 [...] arise. Assessment & Plan (04/26/2022 3:07 PM HALFWAY HOUSE COUNSELOR): Ms. Grewal has scoliosis of her lumbar spine. While she has pathology at the lower levels of her lumbar spine most of her pain is directed to her mid back below the bra line. Would recommend obtaining a thoracic spine x-ray and ultimately an MRI of the thoracic spine to further evaluate. Patient prefers to go to [facility] for these. We will call the patient after the studies have been completed as she wishes to see Dr. Reynoso for a [id number] conversation. Discussed some conservative treatment options to [...] on file Legal Sex Female 8:57 AM HALFWAY HOUSE COUNSELOR Gender Identity Female 05/13/2022 7:12 AM HALFWAY HOUSE COUNSELOR Sexual Orientation Not on file Last Filed [...] Insurance AETNA MEDICARE AET MEDICARE Care Teams Marketing Operations Coordinator Relationship Specialty Start Date End Date No, Physician PCP - General 04/20/22
[2025-01-13 14:57] VITALS: BP 145/71; PULSE 84; RESP 16; O2SAT 100
== END 2025-01-13 15:18 | disposition home or self-care (01) ==
PROVIDERS: Emergency Provider Emergency Medicine; PCP Family Medicine
DX: M71.21 Synovial cyst of popliteal space [Baker], right knee (principal); M79.661 Pain in right lower leg; Z87.891 Personal history of nicotine dependence
CPT/HCPCS: 93971; 99284

== ENCOUNTER 2025-01-15 10:10 | Outpatient (CLI) | payer MEDICARE, SELFPAY ==
--- NOTE | ~2025-01-15 | XR_ITS ---
EXAMINATION: XR knee RT min 4V, 01/15/2025 10:15 TRAVELING OPERATOR HISTORY: Synovial cyst of popliteal space [Castanon], pain x 2 weeks COMPARISON: No comparisons available. Findings: No acute fracture or malalignment. Moderate degenerative changes of the patellofemoral joint with small effusion Soft tissues unremarkable. Impression: No acute fracture or malalignment. Reviewed, dictated and finalized at location P. ELING OPERATOR Impression: No acute fracture or malalignment.
== END 2025-01-15 10:11 | disposition home or self-care (01) ==
LOC: GOSHIMG 10:10
PROVIDERS: PCP Family Medicine; Visit Provider Nurse Practitioner Family
DX: M71.20 Synovial cyst of popliteal space [Baker], unspecified knee (principal); M25.561 Pain in right knee
CPT/HCPCS: 73564

== ENCOUNTER 2025-01-16 15:44 | Emergency (ER) | payer MEDICARE, SELFPAY ==
--- OUTSIDE RECORDS SUMMARY | 2007-03-23 08:29 | XMS_ITS | Continuity of Care Document ---
Author Organization [facility] Address [address] [place] [address] Phone Care Team Providers Care Charge Weigher Name Role Phone Garry Clayton Unavailable Unavailable Procedures Procedure Date Eye Exam Established Pt Ophthalmoscopy, Subsequent Eye Exam Established Pt Ophthalmoscopy, Subsequent Eye Exam Established Pt Ophthalmoscopy, Subsequent Office Consultation Treatment Of Retina Ophthalmoscopy Ophthalmoscopy Advance Directives Directive Yes / No Effective Date File Name No Information Encounters Encounter Description Practice Location Reason(s) For Visit Diagnoses Date Provider Providers Copied on Encounter [facility], [address] [place] [address] [address], [place], [place], [id number], [place] tel:[phone] SEC [facility] No Information 7 8 Forrest Castañeda. [address] [place], [place], [facility], . tel:[phone] [facility], [address] [place] [address] [address], [place], [place], [address], [place] tel:[phone] [facility] No Information 6[address] Forrest Castañeda. [address] [place], [address], [place]. tel:[phone] [facility], [address], [place], [place], [id number], [place] tel:[phone] [facility] No Information 7 Forrest Castañeda. [address] [place], [address], [place]. tel:[phone] Office Consultation [facility], [address], [place], [place], [address], [place] tel:[phone] [facility] No Information 7 Forrest Castañeda. [address] [place], [address], [place]. tel:[phone] Referring Provider: Salvador Nunez, [address] [place], [address]. tel:[phone] Family History Family Member Type Diagnosis Age At Onset No Information Payers Payer name Insurance type Covered alliance party ID Authoriza tion(s) No Information Social History Type Description Quantity Date Captured Comments Sex Female Smoking Status No Information Chief Complaint And Reason For Visit No Information Reason For Referral Reason For Referral No Information History Of Present Illness Encounter Date Complaint History Of Prese nt Illness No Information Functional Status Date Functional Assessmen t No Information Instructions Date Instruction Additional Infor mation No Information Assessments Type Assessment Date No Information Patient Care Teams Name Effective Dates (start - stop) Status Members No Information
--- OUTSIDE RECORDS SUMMARY | 2007-03-23 08:29 | XMS_ITS | Continuity of Care Document ---
Author Organization [facility] Address [address] [place] [address] Phone Care Team Providers Care Passenger Elevator Operator Name Role Phone Garry Clayton Unavailable Unavailable Procedures Procedure Date Eye Exam Established Pt Ophthalmoscopy, Subsequent Eye Exam Established Pt Ophthalmoscopy, Subsequent Eye Exam Established Pt Ophthalmoscopy, Subsequent Office Consultation Treatment Of Retina Ophthalmoscopy Ophthalmoscopy Advance Directives Directive Yes / No Effective Date File Name No Information Encounters Encounter Description Practice Location Reason(s) For Visit Diagnoses Date Provider Providers Copied on Encounter [facility], [address] [place] [address] [address], [place], [place], [id number], [place] tel:[phone] [facility] No Information 7 8 Forrest Castañdea. [address] [place], [place], [facility], . tel:[phone] [facility], [address] [place] [address] [address], [place], [place], [address], [place] tel:[phone] [facility] No Information 6[address] 7 Forrest Castañeda. [address] [place], [address], [place]. tel:[phone] [facility], [address], [place], [place], [address], [place] tel:[phone] [facility] No Information 7 Forrest Castañeda. [address] [place], [address], [place]. tel:[phone] Office Consultation [facility], [address], [place], [place], [address], [place] tel:[phone] [facility] No Information 7 Forrest Castañeda. [address] [place], [address], [place]. tel:[phone] Referring Provider: Salvador Nunez, [address] [place], [address]. tel:[phone] Family History Family Member Type Diagnosis Age At Onset No Information Payers Payer name Insurance type Covered green party ID Authoriza tion(s) No Information Social [...]
--- NOTE | ~2025-01-16 | XR_ITS ---
EXAMINATION: XR ankle RT min 3V, 01/16/2025 17:11 PROPERTY COORDINATOR HISTORY: right ankle bruising, pain COMPARISON: No comparisons available. Findings: No acute fracture or malalignment. Minimal degenerative changes. Soft tissue swelling. Impression: No acute fracture or malalignment. Reviewed, dictated and finalized at location P. ERTY COORDINATOR Impression: No acute fracture or malalignment.
[2025-01-16 16:02] VITALS: BP 152/79; PULSE 96; RESP 18; TEMP 37.1; O2SAT 96
--- OUTSIDE RECORDS SUMMARY | 2025-01-16 16:17 | XMS_ITS | Clinical Summary ---
Author Organization [facility] C Address [address] [place] [address] Care Team Providers Care Bartenders Name Role Phone No, Physician Primary Care Provider [phone] Allergies Active Allergy Reactions Criticality Noted Date [...] Take by mouth Active vit A,C and R-bxakby-rflmhd ls (OCUVITE with LUTEIN) 300 mcg-200 mg-27 [...] arise. Assessment & Plan (04/26/2022 3:07 PM DYNAMITE CARTRIDGE CRIMPER): Ms. Grewal has scoliosis of her lumbar spine. While she has pathology at the lower levels of her lumbar spine most of her pain is directed to her mid back below the bra line. Would recommend obtaining a thoracic spine x-ray and ultimately an MRI of the thoracic spine to further evaluate. Patient prefers to go to [facility] for these. We will call the patient after the studies have been completed as she wishes to see Dr. Reynoso for a [id number] conversation. Discussed some conservative treatment options to [...] on file Legal Sex Female 8:57 AM DYNAMITE CARTRIDGE CRIMPER Gender Identity Female 05/13/2022 7:12 AM DYNAMITE CARTRIDGE CRIMPER Sexual Orientation Not on file Last Filed [...] Insurance AETNA MEDICARE AET MEDICARE Care Teams Bartenders Relationship Specialty Start Date End Date No, Physician PCP - General 04/20/22
--- NOTE | 2025-01-16 17:09 | ED.EXTPRO ---
HPI - Extremity Problem General Chief complaint: Extremity Problem,Nontraumatic <Deanna Cifuentes PA-C - Last Filed: 01/17/25 09:19> Stated complaint: bruising around ankles <Deanna Cifuentes PA-C - Last Filed: 01/17/25 09:19> Time Seen by Provider: 01/16/25 17:09 <Deanna Cifuentes PA-C - Last Filed: 01/17/25 09:19> Focused HPI: This is a 69 year old female that presents to the ER for bruising. She was seen recently for knee pain diagnosed with a Castanon's cyst and referred to orthopedics. Reports today she noted bruising to the right ankle. This concerned her and prompted her to be seen. Reports she had an US 3 days ago that did not show DVT. GENERAL: Well-appearing, well-nourished, and in no acute distress. HEAD: Normocephalic, atraumatic. CHEST: No respiratory distress. HEART: Regular rate NEURO: ?Alert and oriented x3. Patient screened in triage and initial orders placed.? ?Additional care and disposition to be based upon?diagnostic testing and treatment. <Deanna Cifuentes PA-C - Last Filed: 01/17/25 09:19> History of Present Illness HPI Narrative: I agree with the above HPI <Uli Saunders MD - Last Filed: 01/16/25 21:55> Related Data Home medications: Home Medications ?Medication ?Instructions ?Recorded ?Confirmed ?Last Taken ?Type calcium carbonate (Calcium 600) 600 mg PO DAILY 04/20/19 01/15/25 Unknown History multivitamin 1 tablet PO DAILY 10/01/19 01/15/25 Unknown History Saccharomyces boulardii 250 mg 250 mg PO DAILY 08/02/23 01/15/25 Unknown History capsule (Daily Probiotic (S. boulardii)) olprima epa/dha .Route 08/16/24 01/15/25 Unknown History psyllium husk 0.4 gram capsule 0.4 g PO DAILY 08/16/24 01/15/25 Unknown History (Daily Fiber) vitamins A,C,G-myri-jtkyhg 4,296 1 cap PO BID 08/16/24 01/15/25 Unknown History mcg-226 mg-90 mg capsule (PreserVision AREDS) cholecalciferol (vitamin D3) 50 50 mcg PO DAILY 01/15/25 01/15/25 Unknown History mcg (2,000 unit) capsule magnesium salicylate 500 mg capsule 500 mg PO DAILY 01/15/25 01/15/25 Unknown History rosuvastatin 5 mg tablet See Rx Instructions PO .3x weekly 01/15/25 01/15/25 Unknown History <Deanna Cifuentes PA-C - Last Filed: 01/17/25 09:19> Allergies/Adverse reactions: Allergies Allergy/AdvReac Type Severity Reaction Status Date / Time Sulfa (Sulfonamide Allergy Unknown Unknown Verified 01/15/25 09:34 Antibiotics) clavulanic acid (From AdvReac Severe Diarrhea Verified 01/15/25 09:34 Augmentin) ENVIRONMENTAL ALLERGENS Allergy Mild Cough Uncoded 01/15/25 09:34 <Deanna Cifuentes PA-C - Last Filed: 01/17/25 09:19> Review of Systems Review of Systems: All systems reviewed & are unremarkable except as noted in HPI and below <Uli Saunders MD - Last Filed: 01/16/25 21:55> [facility] Past Medical History Medical History: Medical History Vaginitis Hepatitis C antibody test negative (09/22/16) Diverticulosis Degenerative disc disease Depression Anxiety Asthma History of vaginal delivery <Deanna Cifuentes PA-C - Last Filed: 01/17/25 09:19> Surgical History Surgical History: Surgical History Hx of cataract surgery (~09/05/19) both eyes History of tonsillectomy (~1960) History of adenectomy (~1960) [place] teeth removed H/O LEEP History of right hip replacement History of dilation and curettage <Deanna Cifuentes PA-C - Last Filed: 01/17/25 09:19> Family History Family History: Family History Father Hyperlipidemia Mother Hyperlipidemia <Deanna Cifuentes PA-C - Last Filed: 01/17/25 09:19> Social History Social History: Social History Social History: Caffeine- coffee Smoking status: Former smoker Second hand tobacco smoke exposure: No Smoking end date: 03/07/16 Alcohol intake: current Alcohol use details: rarely Substance use: never Substance use type: does not use Do You Feel Safe in your Home?: Yes Lack of Transportation: No Lack of Food: Never True Current Housing: I Have Housing Concerned About Future Housing: No Difficulty Paying Gas/Electric Bills: No Difficulty Paying for Meds: No Currently Unemployed: No Education: Decline to Answer Difficulty w/ Childcare or Family Care: No Occupation/Education: retired Agree to blood products: Yes <Deanna Cifuentes PA-C - Last Filed: 01/17/25 09:19> Exam Narrative: APPEARANCE: Well appearing, no pain, no distress, well-nourished. HEAD: normocephalic, atraumatic. EYES: PERRLA/EOMI, conjunctivae clear. NOSE: Normal no drainage EARS:TMS clear with good light reflex. THROAT: Pharynx clear, no exudate. NECK: Supple. No adenopathy, no masses. RESPIRATORY: Airway patent, respirations nonlabored. Clear to auscultation bilaterally, no rales, rhonchi, wheezing. CARDIOVASCULAR: Regular rate and rhythm without murmurs rubs or gallops. ABDOMINAL: Soft, nontender, nondistended, normal bowel sounds MUSCULOSKELETAL: bruising to the lateral right ankle, no posterior tenderness to palpation of the calf NEURO: Alert. Cranial nerves II through XII intact. Good gait. Good coordination SKIN: Warm, dry. Normal Color <Uli Saunders MD - Last Filed: 01/16/25 21:55> Course Vital Signs Vital signs: Vital Signs Temperature 98.7 F 01/16/25 16:02 Pulse Rate 96 01/16/25 16:02 Respiratory Rate 18 01/16/25 16:02 Blood Pressure 152/79 H 01/16/25 16:02 Pulse Oximetry 96 01/16/25 16:02 Temperature 98.7 F 01/16/25 16:02 Pulse Rate 96 01/16/25 16:02 Respiratory Rate 18 01/16/25 16:02 Blood Pressure 152/79 H 01/16/25 16:02 Pulse Oximetry 96 01/16/25 16:02 <Deanna Cifuentes PA-C - Last Filed: 01/17/25 09:19> Vital Signs Temperature 98.7 F 01/16/25 16:02 Pulse Rate 96 01/16/25 16:02 Respiratory Rate 18 01/16/25 16:02 Blood Pressure 152/79 H 01/16/25 16:02 Pulse Oximetry 96 01/16/25 16:02 Temperature 98.7 F 01/16/25 16:02 Pulse Rate 96 01/16/25 16:02 Respiratory Rate 18 01/16/25 16:02 Blood Pressure 152/79 H 01/16/25 16:02 Pulse Oximetry 96 01/16/25 16:02 <Uli Saunders MD - Last Filed: 01/16/25 21:55> MDM - Extremity (Nontraumatic) MDM Narrative Medical decision making narrative: 69-year-old female presenting to the emergency department for evaluation for bruising at her ankles. Patient states that she does have a prior diagnosis a popliteal cyst. Patient reports that she did get a massage today for the upper legs. Patient was very active today and patient got home in the evening she noticed she was having worsening leg swelling and does have some bruising at the ankle. Patient is afebrile with no leukocytosis and a stable hemoglobin of 13.7 and platelets of 258. Patient's INR is 1.0. Patient has no acute abnormalities on her CMP no acute findings on the x-ray today. I do suspect patient has bruising is secondary to the referring of the popliteal cyst causing swelling and ecchymosis that tracked down to the ankle. Patient has no posterior calf tenderness and no tenderness to the ankle. No evidence of cellulitis. Patient does have follow-up with Orthopedics tomorrow. Patient was encouraged to refrain from further associated and to elevate the leg as directed. All questions concerns were addressed patient was comfortable the plan for discharge <Deanna Cifuentes PA-C - Last Filed: 01/17/25 09:19> 69-year-old female presenting to the emergency department for evaluation for bruising at her ankles. Patient states that she does have a prior diagnosis a popliteal cyst. Patient reports that she did get a massage today for the upper legs. Patient was very active today and patient got home in the evening she noticed she was having worsening leg swelling and does have some bruising at the ankle. Patient is afebrile with no leukocytosis and a stable hemoglobin of 13.7 and platelets of 258. Patient's INR is 1.0. Patient has no acute abnormalities on her CMP no acute findings on the x-ray today. I do suspect patient has bruising is secondary to the referring of the popliteal cyst causing swelling and ecchymosis that tracked down to the ankle. Patient has no posterior calf tenderness and no tenderness to the ankle. No evidence of cellulitis. Patient does have follow-up with Orthopedics tomorrow. Patient was encouraged to refrain from further associated and to elevate the leg as directed. All questions concerns were addressed patient was comfortable the plan for discha <Uli Saunders MD - Last Filed: 01/16/25 21:55> Differential Diagnosis Differential diagnosis: Likely gout, cellulitis, superficial thrombophlebitis, lower extremity edema and deep vein thrombosis of lower extremity <Uli Saunders MD - Last Filed: 01/16/25 21:55> Lab Data Result diagrams: 01/16/25 18:17 01/16/25 18:17 <Deanna Cifuentes PA-C - Last Filed: 01/17/25 09:19> Labs: Lab Results 01/16/25 Range/Units 18:17 WBC 7.4 (4.5-10.0) K/mm3 RBC 4.49 (4.2-5.4) M/mm3 Hgb 13.7 (12.0-15.0) g/dL Hct 40.4 (37.0-47.0) % MCV 90.0 (80-100) fl MCH 30.5 (26-34) pg MCHC 33.9 (32-36) g/dl RDW 12.5 (11.5-14.5) % Plt Count 258 (150-375) k/mm3 MPV 8.5 (7.4-10.4) fl Immature Gran % (Auto) 0.3 (0-0.5) % Neut % (Auto) 75.3 H (45.5-73.1) % Lymph % (Auto) 14.9 L (18.3-44.2) % [place] % (Auto) 7.6 (2.6-8.5) % Eos % (Auto) 1.2 (0-4.4) % Baso % (Auto) 0.7 (0.2-1.2) % Lymph # (Auto) 1.10 (0.9-3.2) K/mm3 [place] # (Auto) 0.6 (0.1-0.6) K/mm3 Eos # (Auto) 0.1 (0-0.3) K/mm3 Baso # (Auto) 0.1 (0.0-0.1) K/mm3 Abs Immat Gran (auto) 0.02 (0.00-0.031) K/mm3 Absolute Neuts (auto) 5.6 (1.3-6.7) K/mm3 Absolute Nucleated RBC 0.000 (0.0-0.012) K/mm3 Nucleated RBC % 0.0 (0.0-0.2) % PT 12.9 (11.1-14.7) Seconds INR 1.0 APTT 25.5 (22.3-36.8) Seconds Sodium 138 (137-145) mmol/L Potassium 3.9 (3.4-5.0) mmol/L Chloride 103 (98-107) mmol/L Carbon Dioxide 28 (22-30) mmol/L Anion Gap 7 (4-12) mmol/L BUN 19 H (7-17) mg/dL Creatinine 0.88 (0.7-1.0) mg/dL Estim Creat Clear Calc 41 ml/min Estimated GFR > 60 (59 - ) Glucose 95 (65-110) mg/dL Calcium 10.1 (8.4-10.2) mg/dL <Deanna Cifuentes PA-C - Last Filed: 01/17/25 09:19> Lab Results 01/16/25 Range/Units 18:17 WBC 7.4 (4.5-10.0) K/mm3 RBC 4.49 (4.2-5.4) M/mm3 Hgb 13.7 (12.0-15.0) g/dL Hct 40.4 (37.0-47.0) % MCV 90.0 (80-100) fl MCH 30.5 (26-34) pg MCHC 33.9 (32-36) g/dl RDW 12.5 (11.5-14.5) % Plt Count 258 (150-375) k/mm3 MPV 8.5 (7.4-10.4) fl Immature Gran % (Auto) 0.3 (0-0.5) % Neut % (Auto) 75.3 H (45.5-73.1) % Lymph % (Auto) 14.9 L (18.3-44.2) % [place] % (Auto) 7.6 (2.6-8.5) % Eos % (Auto) 1.2 (0-4.4) % Baso % (Auto) 0.7 (0.2-1.2) % Lymph # (Auto) 1.10 (0.9-3.2) K/mm3 [place] # (Auto) 0.6 (0.1-0.6) K/mm3 Eos # (Auto) 0.1 (0-0.3) K/mm3 Baso # (Auto) 0.1 (0.0-0.1) K/mm3 Abs Immat Gran (auto) 0.02 (0.00-0.031) K/mm3 Absolute Neuts (auto) 5.6 (1.3-6.7) K/mm3 Absolute Nucleated RBC 0.000 (0.0-0.012) K/mm3 Nucleated RBC % 0.0 (0.0-0.2) % PT 12.9 (11.1-14.7) Seconds INR 1.0 APTT 25.5 (22.3-36.8) Seconds Sodium 138 (137-145) mmol/L Potassium 3.9 (3.4-5.0) mmol/L Chloride 103 (98-107) mmol/L Carbon Dioxide 28 (22-30) mmol/L Anion Gap 7 (4-12) mmol/L BUN 19 H (7-17) mg/dL Creatinine 0.88 (0.7-1.0) mg/dL Estim Creat Clear Calc 41 ml/min Estimated GFR > 60 (59 - ) Glucose 95 (65-110) mg/dL Calcium 10.1 (8.4-10.2) mg/dL <Uli Saunders MD - Last Filed: 01/16/25 21:55> Imaging Data Attestation: I personally reviewed and interpreted this imaging study as follows: <Uli Saunders MD - Last Filed: 01/16/25 21:55> My impression: x-ray: No acute fracture or dislocation <Uli Saunders MD - Last Filed: 01/16/25 21:55> Radiologist's impression: Impressions Ankle X-Ray 01/16/25 17:28 Impression: No acute fracture or malalignment. <Uli Saunders MD - Last Filed: 01/16/25 21:55> Critical Care Time Critical Care Time Critical Care Time: No <Deanna Cifuentes PA-C - Last Filed: 01/17/25 09:19> Discharge Plan Discharge Clinical Impression: Ecchymosis <Deanna Cifuentes PA-C - Last Filed: 01/17/25 09:19> Patient Disposition: Home <Deanna Cifuentes PA-C - Last Filed: 01/17/25 09:19> Condition: Stable <Deanna Cifuentes PA-C - Last Filed: 01/17/25 09:19> Instructions: Antibiotic Form <Deanna Cifuentes PA-C - Last Filed: 01/17/25 09:19> Additional Instructions: elevate the leg as directed. Continue to have close follow-up with Orthopedics as scheduled. If you have any worsening symptoms then please call or return to the emergency department. <Deanna Cifuentes PA-C - Last Filed: 01/17/25 09:19> Patient Language: Nepali <Deanna Cifuentes PA-C - Last Filed: 01/17/25 09:19> Prescriptions: No Action multivitamin Tablet 1 tablet PO DAILY psyllium husk [Daily Fiber] 0.4 gram capsule 0.4 g PO DAILY olprima epa/dha .Route Rx Instructions: take 1 daily PreserVision AREDS 4,296 mcg-226 mg-90 mg capsule 1 cap PO BID cholecalciferol (vitamin D3) 50 mcg (2,000 unit) capsule 50 mcg PO DAILY rosuvastatin 5 mg tablet See Rx Instructions PO .3x weekly Dose Instruction: TAKE 1 TABLET BY MOUTH DAILY Rx Instructions: ! tablet 3X WEEKLY; magnesium salicylate 500 mg capsule 500 mg PO DAILY calcium carbonate [Calcium 600] 600 mg calcium (1,500 mg) tablet 600 mg PO DAILY Saccharomyces boulardii [Daily Probiotic (S. boulardii)] 250 mg capsule 250 mg PO DAILY Patient Comments: Recommended by chiropractor naproxen 500 mg tablet 500 mg PO BID PRN (Reason: pain) Qty: 180 1RF albuterol sulfate [Ventolin HFA] 90 mcg/actuation HFA aerosol inhaler 2 inh inhalation Q4H PRN (Reason: shortness of breath or wheezing) Qty: 8.5 0RF fluticasone propionate 50 mcg/actuation spray,suspension 1 spray intranasal BID PRN (Reason: allergy symptoms) Qty: 16 3RF Rx Instructions: administer into each nostril <Deanna Cifuentes PA-C - Last Filed: 01/17/25 09:19> Follow-up/Referrals: Kenna Garcia DO [Primary Care Provider, Family Practice] <Deanna Cifuentes PA-C - Last Filed: 01/17/25 09:19>
[2025-01-16 18:23] LABS: Hematocrit 40.4 % (37.0-47.0); Hemoglobin 13.7 g/dL (12.0-15.0); Immature Granulocyte Percent A 0.3 % (0-0.5); Lymphocytes Absolute Auto 1.10 K/mm3 (0.9-3.2); Mean Corpuscular HGB Conc 33.9 g/dl (32-36); Mean Corpuscular Hemoglobin 30.5 pg (26-34); Mean Corpuscular Volume 90.0 fl (80-100); Nucleated Red Blood Cells Absolute Auto 0.000 K/mm3 (0.0-0.012); Nucleated Red Blood Cells Perc 0.0 % (0.0-0.2); Platelet Count Result 258 k/mm3 (150-375); Red Blood Count 4.49 M/mm3 (4.2-5.4); White Blood Count 7.4 K/mm3 (4.5-10.0)
[2025-01-16 18:33] LABS: Anion Gap 7 mmol/L (4-12); Blood Urea Nitrogen 19 mg/dL (7-17); Calcium 10.1 mg/dL (8.4-10.2); Carbon Dioxide 28 mmol/L (22-30); Chloride 103 mmol/L (98-107); Estimated CRCL calculation 41 ml/min; Estimated Glomerular Filt Rate > 60; Glucose 95 mg/dL (65-110); Potassium 3.9 mmol/L (3.4-5.0); Sodium 138 mmol/L (137-145)
[2025-01-16 18:35] LABS: INR 1.0; Partial Thromboplastin Time 25.5 Seconds (22.3-36.8); Prothrombin Time 12.9 Seconds (11.1-14.7)
== END 2025-01-16 21:01 | disposition home or self-care (01) ==
PROVIDERS: Physician Assistant; Emergency Provider Emergency Medicine; PCP Family Medicine
DX: S90.02XA Contusion of left ankle, initial encounter (principal); J45.909 Unspecified asthma, uncomplicated; Z87.891 Personal history of nicotine dependence
CPT/HCPCS: 36415; 73610; 80048; 85025; 85610; 85730; 99283

== ENCOUNTER 2025-02-09 10:56 | Outpatient (CLI) | payer MEDICARE, SELFPAY ==
--- NOTE | ~2025-02-09 | CT_ITS ---
EXAMINATION:CT lung screening DATE: 02/09/2025 11:36 INDICATION: Personal history of nicotine dependence. TECHNIQUE: Computed tomography (CT) of the chest was performed without intravenous contrast. Automated exposure control and iterative reconstruction technique were employed. The dose-length product (DLP) was 60.70 mGy-cm. COMPARISON: Chest CT 01/17/2024 FINDINGS: The lungs demonstrate mild atelectasis. No pleural effusion. The heart size is normal. No pericardial effusion. There are cysts in the liver measuring up to 2.9 cm. There is moderate cervical spondylosis. IMPRESSION: 1. Lung-RADS category 1: Negative. Continue annual screening with noncontrast low-dose chest CT in 12 months. Reviewed, dictated and finalized at location E. IDE MEDICAL SALES REPRESENTATIVE IMPRESSION: 1. Lung-RADS category 1: Negative. Continue annual screening with noncontrast l ow-dose chest CT in 12 months.
--- OUTSIDE RECORDS SUMMARY | 2025-02-09 11:01 | XMS_ITS | Clinical Summary ---
Author Organization [facility] C Address [address] [place] [address] Care Team Providers Care Neonatal Intensive Care Unit Nurse Name Role Phone No, Physician Primary Care Provider [phone] Allergies Active Allergy Reactions Criticality Noted Date [...] Take by mouth Active vit A,C and J-iyxzwi-dqjalj ls (OCUVITE with LUTEIN) 300 mcg-200 mg-27 [...] arise. Assessment & Plan (04/26/2022 3:07 PM CANOPY STRINGER): Ms. Grewal has scoliosis of her lumbar spine. While she has pathology at the lower levels of her lumbar spine most of her pain is directed to her mid back below the bra line. Would recommend obtaining a thoracic spine x-ray and ultimately an MRI of the thoracic spine to further evaluate. Patient prefers to go to [facility] for these. We will call the patient after the studies have been completed as she wishes to see Dr. Reynoso for a [id number] conversation. Discussed some conservative treatment options to [...] on file Legal Sex Female 8:57 AM CANOPY STRINGER Gender Identity Female 05/13/2022 7:12 AM CANOPY STRINGER Sexual Orientation Not on file Last Filed [...] Insurance [employer] MEDICARE AET MEDICARE Care Teams Neonatal Intensive Care Unit Nurse Relationship Specialty Start Date End Date No, Physician PCP - General 04/20/22
--- OUTSIDE RECORDS SUMMARY | 2025-02-09 11:01 | XMS_ITS | Clinical Summary ---
Author Organization [facility] lin Address [address] [place] [address] Care Team Providers Care Locker Operator Name Role Phone No, Pcp PROFESSOR OF ENGLISH Primary Care Provider Unavailabl e Social History Tobacco Use Types Packs/Day Years Used Date Smoking Tobacco: Never Assessed Comments Unknown Sex and Gender Information Value Date Recorded Sex Assigned at Not on file Legal Sex Female 12:46 PM EST Gender Identity Not on file Sexual Orientation Not on file Plan of Treatment Not on file Medical Devices Not on file [place] [address] [place] [address] MEDICARE Care Teams Locker Operator Relationship Specialty Start Date End Date No, Pcp, PROFESSOR OF ENGLISH N/A Do not use PCP - General Family Medicine 01/14/20
== END 2025-02-09 10:57 | disposition home or self-care (01) ==
PROVIDERS: PCP Family Medicine; Visit Provider Family Medicine
DX: Z12.2 Encounter for screening for malignant neoplasm of respiratory organs (principal); Z87.891 Personal history of nicotine dependence
CPT/HCPCS: 71271